=== PATIENT | female | born 1975 | race Caucasian/White ===

== ENCOUNTER 2018-01-04 19:29 | Emergency (ER) | payer BC, OTHER ==
[2018-01-04] MEDS ORDERED: Cephalexin 500 MG Cap PO ONE (20:05)
--- NOTE | 2018-01-04 20:36 | EDM.PDOC ---
ED HPI GENERAL MEDICAL PROBLEM - General Chief Complaint: Skin Complaint Stated Complaint: SPIDER BITE AND DIFFICULTY BREATHING HORTON SENT Time Seen by Provider: 01/04/18 19:50 Source of Information: Reports: Patient History Limitations: Reports: No Limitations - History of Present Illness INITIAL COMMENTS - FREE TEXT/NARRATIVE: The patient states that she was bitten by a spider just inferior to her left earlobe last night, while in bed. She states that she flicked it off, seeing that it was a spider, and then her cat ate it. She states that today she has felt lightheaded, and has had sharp intermittent central chest pain. She states that the area where she was bitten by the spider has become painful and swollen , and that there was purulent drainage earlier. No recent fever. The patient's PCP is in [place]. Left Neck Pain Score (Numeric/FACES): 5 - Related Data Allergies Allergy/AdvReac Type Severity Reaction Status Date / Time No Known Allergies Allergy Verified 01/04/18 19:35 Home Meds: Home Meds Aspirin 81 mg PO DAILY 01/04/18 [History] Cephalexin [Keflex] 1 cap PO Q6H #28 capsule 01/04/18 [Rx] Gabapentin [Neurontin] 300 mg PO BEDTIME 01/04/18 [History] Lisinopril 0 mg PO DAILY 01/04/18 [History] metFORMIN [Glucophage XR] 0 mg PO BID 01/04/18 [History] tiZANidine HCl [Tizanidine HCl] 2 mg PO BEDTIME 01/04/18 [History] Past Medical History Musculoskeletal History: Reports: Back Pain, Chronic Neurological History: Reports: Neuropathy, Peripheral (LLE, with footdrop) Endocrine/Metabolic History: Reports: Diabetes, Type II, Obesity/BMI 30+ - Past Surgical History HEENT Surgical History: Reports: Oral Surgery ([place] teeth extraction) GI Surgical History: Reports: Cholecystectomy Other GI Surgeries/Procedures: 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 Neurological Surgical History: Reports: Lumbar Spine (x 4, incl fusion) Dermatological Surgical History: Reports: Other (See Below) (Lipoma excisions x 3) Social & Family History - Family History Family Medical History: Noncontributory - Tobacco Use Smoking Status *Q: Former Smoker Years of Tobacco use: 25 Packs/Tins Daily: 1 Month/Year Tobacco Last Used: Quit May 2017 - Caffeine Use Caffeine Use: Reports: Energy Drinks - Alcohol Use Alcohol Use History: Yes Alcohol Use Frequency: Rarely - Recreational Drug Use Recreational Drug Use: Yes Drug Use in Last 12 Months: No Recreational Drug Type: Reports: Marijuana/Hashish (last 2008), Methamphetamine (last 2006) - Living Situation & Occupation Living situation: Reports: , Other (with a friend) Occupation: Employed ([employer]) ED ROS GENERAL - Review of Systems Review Of Systems: ROS reveals no pertinent complaints other than HPI. ED EXAM, SKIN/RASH Exam: See Below Exam Limited By: No Limitations General Appearance: Alert, WD/WN, No Apparent Distress Eye Exam: Bilateral Eye: Normal Inspection Ears: Normal External Exam, Hearing Grossly Normal Nose: Normal Inspection, No Blood Throat/Mouth: Normal Inspection, Normal Lips, Normal Voice, No Airway Compromise Head: Atraumatic, Normocephalic Neck: Full Range of Motion, Other (Approximately 1.5 cm area of erythema and swelling just inferior to the left ear lobe, with a 0.5 cm central scab. No purulent drainage.). No: Lymphadenopathy (L), Lymphadenopathy (R) Respiratory/Chest: No Respiratory Distress, Lungs Clear, Normal Breath Sounds, No Accessory Muscle Use Cardiovascular: Normal Peripheral Pulses, Regular Rate, Rhythm, No Gallop, No JVD, No Murmur, No Rub Peripheral Pulses: 4+: Radial (L), Radial (R) GI/Abdominal: Normal Bowel Sounds, Soft, Non-Tender, No Organomegaly, No Distention, No Abnormal Bruit, No Mass, Other (Obese) (Female) Exam: Deferred Rectal (Female) Exam: Deferred Back Exam: Normal Inspection, Full Range of Motion, NT Extremities: Normal Inspection, Normal Range of Motion, No Pedal Edema, Normal Capillary Refill Neurological: Alert, Oriented, Normal Cognition, No Motor/Sensory Deficits Psychiatric: Normal Affect Skin: Warm, Dry, Intact, Normal Color Course - Vital Signs Last Recorded V/S: Last Vital Signs Temp 37.1 C 01/04/18 21:03 Pulse 89 01/04/18 21:03 Resp 16 01/04/18 21:03 BP 132/88 01/04/18 21:03 Pulse Ox 100 01/04/18 21:03 Orthostatic Blood Pressure [ 140/89 Standing] Orthostatic Blood Pressure [ 144/93 Sitting] Orthostatic Blood Pressure [ 134/86 Supine] - Orders/Labs/Meds Orders: Active Orders 24 hr Category Date Time Status Orthostatic Vital Signs [RC] STAT Care 01/04/18 20:06 Active Meds: Medications Discontinued Medications Generic Name Dose Route Start Last Admin Trade Name Grady PRN Reason Stop Dose Admin Cephalexin 500 mg 01/04/18 20:05 01/04/18 20:08 Keflex PO 01/04/18 20:06 500 mg ONETIME ONE Administration - Re-Assessments/Exams Free Text/Narrative Re-Assessment/Exam: 01/04/18 20:39 The patient is not orthostatic. Her lightheadedness and chest pain is likely due to anxiety about the spider bite. There is local inflammation in the area of the spider bite, although I feel it is too early for an actual infection to have developed. Nevertheless, while I don't see any purulence at this time, the patient states that she had purulent discharge, and I will therefore treat her with Keflex, and refer her to Dr. Ndiaye for follow-up, should it not improve. Departure - Departure Time of Disposition: 20:40 Disposition: Home, Self-Care 01 Condition: Good Clinical Impression: Spider bite wound - Discharge Information Prescriptions: Cephalexin [Keflex] 1 cap PO Q6H #28 capsule Instructions: Spider Bite, [id number] Referrals: Mitch Ndiaye MD [Physician] - PCP,Not In Area [Primary Care Provider] - Forms: ED Department Discharge Additional Instructions: You were seen in the emergency room after being bitten under your left ear by a spider, as well as feeling lightheaded and chest pain. Workup in the ER included positional blood pressure checks, which were normal. You are not dehydrated. On examination, you appear to have local inflammation from the spider bite. It is unlikely to be infected, however, you have been started on the antibiotic Keflex. A prescription for Keflex has been sent to the [facility], [address], located across the street from [facility]. Take one tablet every 6 hours, as prescribed. Finish the entire prescription unless told otherwise by your doctor. If your symptoms fail to improve, please follow-up with the Surgeon Dr. Mitch Ndiaye. If any other problems, please do not hesitate to return to the ER. - My Orders Last 24 Hours: My Active Orders 01/04/18 20:06 Orthostatic Vital Signs [RC] STAT - Assessment/Plan Last 24 Hours: My Active Orders 01/04/18 20:06 Orthostatic Vital Signs [RC] STAT
== END 2018-01-04 21:03 | disposition home or self-care (01) ==
LOC: JD.ED 19:29
DX: S10.96XA Insect bite of unspecified part of neck, initial encounter (principal); E11.42 Type 2 diabetes mellitus with diabetic polyneuropathy; E66.9 Obesity, unspecified; Z87.891 Personal history of nicotine dependence; Z79.82 Long term (current) use of aspirin; Z79.899 Other long term (current) drug therapy; W57.XXXA Bitten or stung by nonvenomous insect and other nonvenomous arthropods, initial encounter
CPT/HCPCS: 99283; A9270

== ENCOUNTER 2018-09-27 08:45 | Emergency (ER) | payer BC ==
[2018-09-27] MEDS ORDERED: Ondansetron 4 MG/2 ML SDV IVPUSH ONE (09:55)
[2018-09-27] MEDS ORDERED: Sodium Chloride 0.9% 1,000 ML IV SCH (10:00)
--- NOTE | 2018-09-27 10:06 | EDM.PDOC ---
ED HPI GENERAL MEDICAL PROBLEM - General Chief Complaint: Respiratory Problem Stated Complaint: CHEST PAIN Time Seen by Provider: 09/27/18 09:27 Source of Information: Reports: Patient, RN Notes Reviewed History Limitations: Reports: No Limitations - History of Present Illness INITIAL COMMENTS - FREE TEXT/NARRATIVE: The patient states that she has had a dry cough, nausea, vomiting, and dry heaves, for the past 2 days. She states that she just feels lousy. She denies having any dyspnea or wheezing. She states that she had vomiting 2 days ago, but only dry heaves since. She is able to tolerate water. No associated diarrhea. No recent fever. No urinary symptoms. No abdominal pain. The patient relates that there are similarly ill people at work. The patient states that she has not taken any [id number]-vax-[id number] or home remedies to try to treat her symptoms. The patient also relates that she had some chest pain for about 15 minutes this morning, felt under her left breast, by the anterior left axillary line, that felt like a pulled muscle. It is gone now. The patient has type 2 diabetes. She states that she is instructed to check her blood sugar once or twice a day, but in reality, she checks it about once a week , if she is feeling lightheaded or otherwise ill. This morning it was about 240 , which is high for her. The patient's PCP is Dr. Lantigua, in [place]. The patient did not receive an influenza vaccine this season. - Related Data Allergies Allergy/AdvReac Type Severity Reaction Status Date / Time No Known Allergies Allergy Verified 09/27/18 08:56 Home Meds: Home Meds Aspirin 81 mg PO DAILY 01/04/18 [History] Gabapentin [Neurontin] 300 mg PO BEDTIME 01/04/18 [History] Lisinopril 0 mg PO DAILY 01/04/18 [History] metFORMIN [Glucophage XR] 0 mg PO BID 01/04/18 [History] tiZANidine HCl [Tizanidine HCl] 2 mg PO BEDTIME 01/04/18 [History] Calcium Carbonate [Calcium] 500 mg PO DAILY 09/27/18 [History] Fish Oil/Wilson-3 Fatty Acids [Fish Oil 1,000 MG] 1 each PO DAILY 09/27/18 [ History] Hydrocodone/Acetaminophen [Hydrocodon-Acetaminophn 10-325] 1 - 2 tab PO Q6H [History] Ondansetron [Zofran ODT] 1 tab PO Q8H PRN #10 tab.dis 09/27/18 [Rx] Past Medical History Cardiovascular History: Reports: Hypertension Genitourinary History: Reports: Renal Calculus Musculoskeletal History: Reports: Back Pain, Chronic Neurological History: Reports: Neuropathy, Peripheral (left footdrop) Endocrine/Metabolic History: Reports: Diabetes, Type II, Obesity/BMI 30+ - Past Surgical History HEENT Surgical History: Reports: Oral Surgery ([place] teeth extraction) GI Surgical History: Reports: Cholecystectomy (2009 or 2010) Other GI Surgeries/Procedures: 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 Neurological Surgical History: Reports: Lumbar Spine (Microdiscectomy x 3, fusion x 1) Dermatological Surgical History: Reports: Other (See Below) (Lipoma excision x 3 , noncancerous tumors excised soft left upper abdomen/lower chest) Social & Family History - Family History Family Medical History: Noncontributory - Tobacco Use Smoking Status *Q: Former Smoker Years of Tobacco use: 29 Packs/Tins Daily: 2 Month/Year Tobacco Last Used: Quit May 2017 - Caffeine Use Caffeine Use: Reports: Energy Drinks - Alcohol Use Alcohol Use History: Yes Alcohol Use Frequency: Rarely - Recreational Drug Use Recreational Drug Use: Yes Drug Use in Last 12 Months: No Recreational Drug Type: Reports: Marijuana/Hashish (last smoked 2006), Methamphetamine (last smoked 2006) - Living Situation & Occupation Living situation: Reports: , Alone 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 ED EXAM, GENERAL - Physical Exam Exam: See Below Exam Limited By: No Limitations General Appearance: Alert, WD/WN, No Apparent Distress Eye Exam: Bilateral Eye: EOMI, Normal Inspection Ears: Normal External Exam, Hearing Grossly Normal Nose: Normal Inspection Throat/Mouth: Normal Inspection, Normal Lips, Normal Voice, No Airway Compromise Head: Atraumatic, Normocephalic Neck: Normal Inspection, Full Range of Motion Respiratory/Chest: No Respiratory Distress, Lungs Clear, Normal Breath Sounds, No Accessory Muscle Use. No: Crackles, Rhonchi, Wheezing Cardiovascular: Normal Peripheral Pulses, Regular Rate, Rhythm, No Gallop, No JVD, No Murmur, No Rub Peripheral Pulses: 4+: Radial (L), Radial (R) GI/Abdominal: Normal Bowel Sounds, Soft, Non-Tender, No Organomegaly, No Distention, No Abnormal Bruit, No Mass, Other (Obese) (Female) Exam: Deferred Rectal (Female) Exam: Deferred Back Exam: Normal Inspection, Full Range of Motion, NT Extremities: Normal Inspection, Normal Range of Motion, Normal Capillary Refill Neurological: Alert, Oriented, Normal Cognition, No Motor/Sensory Deficits Psychiatric: Normal Affect Skin Exam: Warm, Dry, Intact, Normal Color, No Rash Course - Vital Signs Last Recorded V/S: Last Vital Signs Temp 36.6 C 09/27/18 08:49 Pulse 73 09/27/18 08:49 Resp 18 09/27/18 08:49 BP 153/93 H 09/27/18 08:49 Pulse Ox 100 09/27/18 08:49 - Orders/Labs/Meds Orders: Active Orders 24 hr Category Date Time Status Sodium Chloride 0.9% [Normal Saline] 1,000 ml Med 09/27/18 10:00 Active IV ASDIRECTED Medication Orders Sodium Chloride (Normal Saline) 1,000 mls @ 150 mls/hr IV ASDIRECTED SOLEDAD Last Admin: 09/27/18 10:09 Dose: 150 mls/hr Labs: Laboratory Tests 09/27/18 09/27/18 Range/Units 10:08 10:08 WBC 5.59 (3.98-10.04) K/mm3 RBC 4.35 (3.98-5.22) M/mm3 Hgb 10.4 L (11.2-15.7) gm/L Hct 34.2 (34.1-44.9) % MCV 78.6 L (79.4-94.8) fl MCH 23.9 L (25.6-32.2) pg MCHC 30.4 L (32.2-35.5) g/dl RDW Std Deviation 44.9 (36.4-46.3) fL Plt Count 371 H (182-369) K/mm3 MPV 10.9 (9.4-12.3) fl Neutrophils % (Manual) 49 (40-60) % Band Neutrophils % 0 (0-10) % Lymphocytes % (Manual) 39 (20-40) % Atypical Lymphs % 0 % Monocytes % (Manual) 5 (2-10) % Eosinophils % (Manual) 5 (0.7-5.8) % Basophils % (Manual) 2 H (0.1-1.2) Platelet Estimate Adequate Plt Morphology Comment Normal RBC Morph Comment Normal Sodium 141 (136-145) mEq/L Potassium 4.0 (3.5-5.1) mEq/L Chloride 106 (98-107) mEq/L Carbon Dioxide 25 (21-32) mEq/L Anion Gap 14.0 (5-15) BUN 7 (7-18) mg/dL Creatinine 0.5 L (0.55-1.02) mg/dL Est Cr Clr Drug Dosing 146.35 mL/min Estimated GFR (MDRD) > 60 (>60) mL/min BUN/Creatinine Ratio 14.0 (14-18) Glucose 79 (74-106) mg/dL Calcium 9.1 (8.5-10.1) mg/dL Total Bilirubin 0.2 (0.2-1.0) mg/dL AST 31 (15-37) U/L ALT 29 (14-59) U/L Alkaline Phosphatase 44 L (46-116) U/L Total Protein 7.6 (6.4-8.2) g/dl Albumin 3.8 (3.4-5.0) g/dl Globulin 3.8 gm/dL Albumin/Globulin Ratio 1.0 (1-2) Meds: Medications Generic Name Dose Route Start Last Admin Trade Name Freq PRN Reason Stop Dose Admin Sodium Chloride 1,000 mls @ 150 mls/hr 09/27/18 10:00 09/27/18 10:09 Normal Saline IV 150 mls/hr ASDIRECTED SOLEDAD Administration Discontinued Medications Generic Name Dose Route Start Last Admin Trade Name Freq PRN Reason Stop Dose Admin Ondansetron HCl 4 mg 09/27/18 09:55 09/27/18 10:09 Zofran IVPUSH 09/27/18 09:56 4 mg ONETIME ONE Administration - Re-Assessments/Exams Free Text/Narrative Re-Assessment/Exam: 09/27/18 10:11 The etiology of the patient's symptoms is not immediately clear. She is likely suffering from a viral URI as well as a gastrointestinal illness. I ordered an influenza swab, because if it is positive, the patient is likely still within the window of opportunity for treatment. I've also ordered a CBC and CMP. Because the patient's lungs are clear to auscultation, she has no dyspnea, does not have a fever, and her oxygen saturation is 100% on room air, I don't see the need for an emergency chest x-ray at this time. Additionally, the patient has no urinary symptoms, therefore a urinalysis is not indicated. 09/27/18 11:32 Test results discussed with the patient. Today's workup is entirely unremarkable. She does not have an elevated WBC count, and her CMP is normal. Her influenza swab returned negative. As above, I suspect that the patient is suffering from a viral URI along with a gastrointestinal illness, also likely viral. I explained to the patient that there are no medicines to get rid of the viruses themselves, but that we can treat her symptoms with medicines such as Zofran. I will send a prescription to [facility]. I advised her to stay adequately hydrated, and if she is hungry, to eat a bland diet. If she is still symptomatic by 10/01/2018, I advised her to follow-up with her PCP. Departure - Departure Time of Disposition: 11:35 Disposition: Home, Self-Care 01 Condition: Fair Clinical Impression: Viral URI with cough, Nausea & vomiting - Discharge Information *PRESCRIPTION DRUG MONITORING PROGRAM REVIEWED*: Not Applicable *COPY OF PRESCRIPTION DRUG MONITORING REPORT IN PATIENT JACINTO: Not Applicable Referrals: Brittany Lantigua MD [Primary Care Provider] - Forms: ED Department Discharge Additional Instructions: You were seen in the emergency room for a dry cough, nausea, and vomiting. Workup in the ER included a CBC, a CMP, and an influenza swab. Your entire workup was unremarkable. You do not have an elevated WBC count to suggest a bacterial infection, there are no electrolyte abnormalities, you are not dehydrated, and your influenza swab returned negative. Based on your history, physical examination, and ER tests, you are most likely suffering from a viral upper respiratory infection, along with a gastrointestinal viral illness. While there are no medicines to get rid of the viruses themselves, there are medicines that may help treat your symptoms. A prescription for anti-nausea medicine Zofran has been sent to the [facility], located at [address] [facility]. Dissolve one tablet of Zofran on your tongue up to every 8 hours, as needed for nausea/vomiting. Stay adequately hydrated. It does not really matter what kind of fluid you drink. If you are hungry, we recommend that you eat a bland diet, such as rice, mashed potatoes, applesauce, bananas, etc. If you are still symptomatic by 10/01/2018, we recommend that you follow- up with your PCP, Dr. Lantigua, in [place]. If any other problems, please do not hesitate to return to the ER. - My Orders Last 24 Hours: My Active Orders 09/27/18 10:00 Sodium Chloride 0.9% [Normal Saline] 1,000 ml IV ASDIRECTED - Assessment/Plan Last 24 Hours: My Active Orders 09/27/18 10:00 Sodium Chloride 0.9% [Normal Saline] 1,000 ml IV ASDIRECTED
== END 2018-09-27 11:50 | disposition home or self-care (01) ==
LOC: JD.ED 08:45
DX: J06.9 Acute upper respiratory infection, unspecified (principal); R11.2 Nausea with vomiting, unspecified; E11.40 Type 2 diabetes mellitus with diabetic neuropathy, unspecified; I10 Essential (primary) hypertension; Z79.82 Long term (current) use of aspirin; Z79.84 Long term (current) use of oral hypoglycemic drugs; Z79.899 Other long term (current) drug therapy
CPT/HCPCS: 36415; 80053; 85007; 85027; 87804; 96361; 96374; 99284; J2405; J7040; 99283

== ENCOUNTER 2019-02-19 21:25 | Emergency (ER) | payer BC ==
--- NOTE | 2019-02-19 21:58 | EDM.PDOC ---
ED HPI GENERAL MEDICAL PROBLEM - General Chief Complaint: Head Injury Stated Complaint: PICTURE FELL ON HEAD Time Seen by Provider: 02/19/19 21:40 Source of Information: Reports: Patient, RN Notes Reviewed History Limitations: Reports: No Limitations - History of Present Illness INITIAL COMMENTS - FREE TEXT/NARRATIVE: Patient is a 43-year-old female who presents to the ED for the evaluation of a head injury. The patient states that just prior to arrival to the ER, she had a picture frame fall on to the top of her head. 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 She notes that she does have a bruise to the top of her head, and a small abrasion to the bridge of nose, however she denies any loss of consciousness, blacking out, blurred vision/double vision, pain in her neck, nausea or vomiting. She only complains of some lightheadedness and a mild headache. The patient has never had any sort of head injury. Headache Pain Score (Numeric/FACES): 6 - Related Data Allergies Allergy/AdvReac Type Severity Reaction Status Date / Time No Known Allergies Allergy Verified 02/19/19 21:31 Home Meds: Home Meds Aspirin 81 mg PO DAILY 01/04/18 [History] Gabapentin [Neurontin] 300 mg PO BEDTIME 01/04/18 [History] Lisinopril 0 mg PO DAILY 01/04/18 [History] metFORMIN [Glucophage XR] 0 mg PO BID 01/04/18 [History] tiZANidine HCl [Tizanidine HCl] 2 mg PO BEDTIME 01/04/18 [History] Calcium Carbonate [Calcium] 500 mg PO DAILY 09/27/18 [History] Fish Oil/Vassar-3 Fatty Acids [Fish Oil 1,000 MG] 1 each PO DAILY 09/27/18 [ History] Hydrocodone/Acetaminophen [Hydrocodon-Acetaminophn 10-325] 1 - 2 tab PO Q6H [History] Ondansetron [Zofran ODT] 1 tab PO Q8H PRN #10 tab.dis 09/27/18 [Rx] Past Medical History Cardiovascular History: Reports: Hypertension Other Cardiovascular History: palpatations Genitourinary History: Reports: Renal Calculus Musculoskeletal History: Reports: Back Pain, Chronic Neurological History: Reports: Neuropathy, Peripheral Endocrine/Metabolic History: Reports: Diabetes, Type II, Obesity/BMI 30+ - Past Surgical History HEENT Surgical History: Reports: Oral Surgery GI Surgical History: Reports: Cholecystectomy Other GI Surgeries/Procedures: 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 Neurological Surgical History: Reports: Lumbar Spine Social & Family History - Family History Family Medical History: Noncontributory - Tobacco Use Smoking Status *Q: Former Smoker Used Tobacco, but Quit: Yes Month/Year Tobacco Last Used: 2017 - Caffeine Use Caffeine Use: Reports: Energy Drinks - Recreational Drug Use Recreational Drug Use: No - Living Situation & Occupation Living situation: Reports: , Alone 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 Denies: Confusion, Dizziness, Numbness, Syncope, Tingling Psychiatric: Reports: No Symptoms Hematologic/Lymphatic: Reports: No Symptoms ED EXAM, HEAD INJURY - Physical Exam Exam: See Below Exam Limited By: No Limitations General Appearance: Alert, WD/WN, No Apparent Distress Head: Atraumatic, Normocephalic, Scalp Hematoma (hematoma to top of mid frontal head, near scalp line.), Scalp Tenderness (mid frontal area where hematoma is noted.). No: Scalp Lacerations Nexus Criteria: No: Posterior, Midline Cervical Tenderness, Evidence of Intoxication, Altered Level of Consciousness, Focal Neurological Deficit, Painful Distraction Injuries Eyes: Bilateral Eye: EOMI, Normal Inspection, PERRL Ears: Normal External Exam, Normal Canal, Hearing Grossly Normal, Normal TMs Nose: Normal Inspection (small abrasion noted to bridge of nose, no active bleeding.), Normal Mucousa, No Blood Throat/Mouth: Normal Inspection, Normal Lips, Normal Teeth, Normal Gums, Normal Oropharynx, Normal Voice, No Airway Compromise Neck: Non-Tender, Full Range of Motion, Normal Alignment, Normal Inspection Respiratory: No Respiratory Distress, Lungs Clear, Normal Breath Sounds, No Accessory Muscle Use, Chest Non-Tender Cardiovascular: Normal Peripheral Pulses, Regular Rate, Rhythm, No Murmur 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: 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 inspector II-XII nml As Tested, No Motor/Sensory Deficits, Alert, Normal Mood/Affect, Oriented x 3 Skin: Normal Color, Warm/Dry - Usman Coma Score Best Eye Response (Usman): (4) Open Spontaneously Best Verbal Response (Ledbetter): (5) Oriented Best Motor Response (Usman): (6) Obeys Commands Usman Total: 15 Course - Vital Signs Last Recorded V/S: Last Vital Signs Temp 97.4 F 02/19/19 21:32 Pulse 84 02/19/19 21:32 Resp 16 02/19/19 21:32 BP 125/85 02/19/19 21:32 Pulse Ox 98 02/19/19 21:32 - Re-Assessments/Exams Free Text/Narrative Re-Assessment/Exam: 02/19/19 21:58 Patient presents to the ED for evaluation of a head injury. The patient does not exhibit any signs or symptoms of a concussion at this time. However she will be educated on signs and symptoms that would be considered worrisome. Departure - Departure Time of Disposition: 21:59 Disposition: Home, Self-Care 01 Condition: Fair Clinical Impression: Headache Qualifiers: Headache type: post-traumatic Headache chronicity pattern: acute headache Intractability: not intractable Qualified Code(s): G44.319 - Acute post- traumatic headache, not intractable Traumatic hematoma of scalp Qualifiers: Encounter type: initial encounter Qualified Code(s): S00.03XA - Contusion of scalp, initial encounter - Discharge Information *PRESCRIPTION DRUG MONITORING PROGRAM REVIEWED*: No *COPY OF PRESCRIPTION DRUG MONITORING REPORT IN PATIENT JACINTO: No Instructions: Post-Concussion Syndrome, [id number], Head Injury, Adult, Easy- to-Read, Hematoma, [id number] Referrals: PCP,Not In Area [Primary Care Provider] - Additional Instructions: You have been evaluated in the ED today for your head injury. You do not show any signs and symptoms of a concussion at this time, however you have been provided with a educational handout that discusses postconcussion syndrome. This handout is for your general information. It is not likely that you will develop any of these symptoms. You may take 500 mg Tylenol or 600 mg ibuprofen every 6 hours as needed for further pain relief. Please return to the ED if her symptoms should change or worsen.
== END 2019-02-19 22:09 | disposition home or self-care (01) ==
LOC: JD.ED 21:25
DX: S00.03XA Contusion of scalp, initial encounter (principal); G44.319 Acute post-traumatic headache, not intractable; S00.31XA Abrasion of nose, initial encounter; I10 Essential (primary) hypertension; E11.42 Type 2 diabetes mellitus with diabetic polyneuropathy; Z87.891 Personal history of nicotine dependence; Z79.82 Long term (current) use of aspirin; Z79.899 Other long term (current) drug therapy; Z79.84 Long term (current) use of oral hypoglycemic drugs; W20.8XXA Other cause of strike by thrown, projected or falling object, initial encounter
CPT/HCPCS: 99282; 99283

== ENCOUNTER 2019-05-18 01:24 | Emergency (ER) | payer BC ==
[2019-05-18] MEDS ORDERED: Sodium Chloride 0.9% 1,000 ML IV SCH (01:45)
--- NOTE | 2019-05-18 01:57 | EDM.PDOC ---
ED HPI GENERAL MEDICAL PROBLEM - General Chief Complaint: Drug or Alcohol Abuse Stated Complaint: [facility] Time Seen by Provider: 05/18/19 01:31 Source of Information: Reports: Patient, EMS History Limitations: Reports: Intoxication - History of Present Illness INITIAL COMMENTS - FREE TEXT/NARRATIVE: This is a 43-year-old female. The ambulance was called to her residence because she was unresponsive and her blood sugar was high. She is brought into the ER for evaluation. She is somewhat angry at being brought to the ER and with the ambulance crew for keeping her on the stretcher. She says she drank beer and whiskey tonight and she doesn't want to be here but her friends will come to pick her up. I explained to her that if she would just let his check her blood work and make sure she is okay we can let her go home. Her blood sugar was noted to be 336 at the scene. She isn't noted diabetic and she is on pills for it but does not take insulin. She denies any acute problems other then her arms are hurting because she was restrained in the ambulance because she was being combative. Bilateral Arm Pain Score (Numeric/FACES): 0 - Related Data Allergies Allergy/AdvReac Type Severity Reaction Status Date / Time No Known Allergies Allergy Verified 05/18/19 01:34 Home Meds: Home Meds Aspirin 81 mg PO DAILY 01/04/18 [History] Gabapentin [Neurontin] 300 mg PO BEDTIME 01/04/18 [History] Lisinopril 20 mg PO DAILY 01/04/18 [History] metFORMIN [Glucophage XR] 1,000 mg PO BID 01/04/18 [History] tiZANidine HCl [Tizanidine HCl] 2 mg PO BEDTIME 01/04/18 [History] Calcium Carbonate [Calcium] 500 mg PO DAILY 09/27/18 [History] Fish Oil/[place]-3 Fatty Acids [Fish Oil 1,000 MG] 1 each PO DAILY 09/27/18 [ History] Hydrocodone/Acetaminophen [Hydrocodon-Acetaminophn 10-325] 1 - 2 tab PO Q6H [History] Empagliflozin [Jardiance] 25 mg PO DAILY 03/18/19 [History] Ferrous Sulfate [Ferosul] 220 mg PO DAILY #150 ml 03/18/19 [Rx] Magnesium 1 tab PO BID 03/18/19 [History] Phentermine HCl 30 mg PO DAILY 03/18/19 [History] atorvaSTATin [Lipitor] 20 mg PO DAILY 03/18/19 [History] Past Medical History Cardiovascular History: Reports: Hypertension Other Cardiovascular History: palpatations Genitourinary History: Reports: Renal Calculus Musculoskeletal History: Reports: Back Pain, Chronic Neurological History: Reports: Neuropathy, Peripheral Endocrine/Metabolic History: Reports: Diabetes, Type II, Obesity/BMI 30+ - Past Surgical History HEENT Surgical History: Reports: Oral Surgery GI Surgical History: Reports: Cholecystectomy Other GI Surgeries/Procedures: 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 Neurological Surgical History: Reports: Lumbar Spine Other Neurological Surgeries/Procedures: left foot drop, L4-5 laminectomies (2) and fusion (2) Social & Family History - Family History Family Medical History: Noncontributory - Caffeine Use Caffeine Use: Reports: Energy Drinks - Living Situation & Occupation Living situation: Reports: , Alone 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) ED ROS GENERAL - Review of Systems Review Of Systems: See Below Constitutional: Reports: No Symptoms HEENT: Reports: No Symptoms Respiratory: Reports: No Symptoms Cardiovascular: Reports: No Symptoms Endocrine: Reports: No Symptoms GI/Abdominal: Reports: No Symptoms : Reports: No Symptoms Musculoskeletal: Reports: Other (Left arm pain status post surgery transposition of the ulnar nerve) Skin: Reports: No Symptoms Neurological: Reports: No Symptoms Psychiatric: Reports: No Symptoms Hematologic/Lymphatic: Reports: No Symptoms - Physical Exam Exam: See Below Exam Limited By: Intoxication General Appearance: Alert, WD/WN, Other (Patient is upset but no acute distress) Eye Exam: Bilateral Eye: Normal Inspection Ears: Normal External Exam Nose: Normal Inspection Throat/Mouth: Normal Inspection, Normal Lips, Normal Voice, No Airway Compromise Head Exam: Normocephalic Neck: Normal Inspection Respiratory/Chest: No Respiratory Distress, Lungs Clear, Normal Breath Sounds Cardiovascular: Regular Rate, Rhythm, No Murmur GI/Abdominal: Soft, Non-Tender Neuro Exam (Abbreviated): Alert, Oriented, Normal Gait, No Motor/Sensory Deficits, Other (Patient got up and walked to the bathroom with no difficulty and no balance problems) Back Exam: Full Range of Motion Extremities: Normal Range of Motion, Other (Status post surgery on the left forearm noted the incision is intact) Psychiatric: Tearful Skin Exam: Warm, Dry Course - Vital Signs Last Recorded V/S: Last Vital Signs Temp 97.0 F 05/18/19 01:27 Pulse 116 H 05/18/19 01:27 Resp 16 05/18/19 01:27 BP 179/116 H 05/18/19 01:27 Pulse Ox 97 05/18/19 01:27 - Orders/Labs/Meds Orders: Active Orders 24 hr Category Date Time Status Blood Alcohol [ETHANOL BLOOD MEDICAL] [CHEM] Stat Lab 05/18/19 01:50 Received COMPREHENSIVE METABOLIC PN,CMP [CHEM] Stat Lab 05/18/19 01:50 Received LIPASE [CHEM] Stat Lab 05/18/19 01:50 Received Sodium Chloride 0.9% [Normal Saline] 1,000 ml Med 05/18/19 01:45 Active IV ASDIRECTED Medication Orders Sodium Chloride (Normal Saline) 1,000 mls @ 1,000 mls/hr IV ASDIRECTED SOLEDAD Last Admin: 05/18/19 01:38 Dose: 1,000 mls/hr Labs: Laboratory Tests 05/18/19 Range/Units 01:50 WBC 6.75 (3.98-10.04) K/mm3 RBC 4.91 (3.98-5.22) M/mm3 Hgb 12.3 D (11.2-15.7) gm/L Hct 38.4 (34.1-44.9) % MCV 78.2 L D (79.4-94.8) fl MCH 25.1 L (25.6-32.2) pg MCHC 32.0 L (32.2-35.5) g/dl RDW Std Deviation 55.2 H (36.4-46.3) fL Plt Count 348 (182-369) K/mm3 MPV 10.3 (9.4-12.3) fl Neut % (Auto) 62.8 (34.0-71.1) % Lymph % (Auto) 28.1 (19.3-51.7) % [place] % (Auto) 6.7 (4.7-12.5) % Eos % (Auto) 1.6 (0.7-5.8) Baso % (Auto) 0.7 (0.1-1.2) % Neut # (Auto) 4.23 (1.56-6.13) K/mm3 Lymph # (Auto) 1.90 (1.18-3.74) K/mm3 [place] # (Auto) 0.45 H (0.24-0.36) K/mm3 Eos # (Auto) 0.11 (0.04-0.36) K/mm3 Baso # (Auto) 0.05 (0.01-0.08) K/mm3 Meds: Medications Generic Name Dose Route Start Last Admin Trade Name Grady PRN Reason Stop Dose Admin Sodium Chloride 1,000 mls @ 1,000 mls/hr 05/18/19 01:45 05/18/19 01:38 Normal Saline IV 1,000 mls/hr ASDIRECTED SOLEDAD Administration - Re-Assessments/Exams Free Text/Narrative Re-Assessment/Exam: 05/18/19 02:10 One of the patient's friends came to the ER to be with her. The patient has torn out her IV and she now wants to sign out AGAINST MEDICAL ADVICE. I explained to her that with her elevated blood sugar it could get worse he could lead to a coma and even and that the alcohol will lead to poor judgment which can lead to injury and possibly . That she needs to stay and be evaluated appropriately. The patient states she is going to leave so she'll sign out AGAINST MEDICAL ADVICE. Departure - Departure Time of Disposition: 02:11 Disposition: Against Medical Advice 07 Condition: Fair Clinical Impression: Elevated blood sugar, Intoxication, Alcohol abuse, Non-insulin dependent type 2 diabetes mellitus - Discharge Information *PRESCRIPTION DRUG MONITORING PROGRAM REVIEWED*: Not Applicable *COPY OF PRESCRIPTION DRUG MONITORING REPORT IN PATIENT JACINTO: Not Applicable Instructions: Alcohol Use Disorder Forms: Refusal of Care AMA Additional Instructions: No more alcohol tonight, if there are worsening symptoms return to the ER - My Orders Last 24 Hours: My Active Orders 05/18/19 01:45 Sodium Chloride 0.9% [Normal Saline] 1,000 ml IV ASDIRECTED 05/18/19 01:50 Blood Alcohol [ETHANOL BLOOD MEDICAL] [CHEM] Stat COMPREHENSIVE METABOLIC PN,CMP [CHEM] Stat LIPASE [CHEM] Stat - Assessment/Plan Last 24 Hours: My Active Orders 05/18/19 01:45 Sodium Chloride 0.9% [Normal Saline] 1,000 ml IV ASDIRECTED 05/18/19 01:50 Blood Alcohol [ETHANOL BLOOD MEDICAL] [CHEM] Stat COMPREHENSIVE METABOLIC PN,CMP [CHEM] Stat LIPASE [CHEM] Stat
== END 2019-05-18 02:10 | disposition left against medical advice (07) ==
LOC: JD.ED 01:24
DX: E11.65 Type 2 diabetes mellitus with hyperglycemia (principal); F10.129 Alcohol abuse with intoxication, unspecified; Y90.1 Blood alcohol level of 20-39 mg/100 ml; I10 Essential (primary) hypertension; E11.42 Type 2 diabetes mellitus with diabetic polyneuropathy; Z79.82 Long term (current) use of aspirin; Z79.899 Other long term (current) drug therapy; Z79.84 Long term (current) use of oral hypoglycemic drugs
CPT/HCPCS: 36415; 80053; 80320; 83690; 85025; 99285; J7040; G0480

== ENCOUNTER 2019-11-06 13:35 | Emergency (ER) | payer BC ==
[2019-11-06] MEDS ORDERED: Sodium Chloride 0.9% 1,000 ML IV STA (13:57)
[2019-11-06] MEDS ORDERED: Ondansetron 4 MG/2 ML SDV IVPUSH ONE (13:57)
[2019-11-06] MEDS ORDERED: HYDROmorphone 1 MG/ML Syringe IVPUSH ONE (13:58)
[2019-11-06] MEDS: Sodium Chloride 0.9% 10 ML Syringe FLUSH PRN ×2 (14:25→16:47)
--- NOTE | 2019-11-06 14:56 | EDM.PDOC ---
ED HPI GENERAL MEDICAL PROBLEM - General Chief Complaint: Abdominal Pain Stated Complaint: ABDOMINAL PAIN/VOMITING Time Seen by Provider: 11/06/19 13:50 Source of Information: Reports: Patient History Limitations: Reports: No Limitations - History of Present Illness INITIAL COMMENTS - FREE TEXT/NARRATIVE: The patient presents with upper abdominal pain, nausea and vomiting. This started last night. She had some loose stools also. She has no fever, chills, cough, congestion, or runny nose. She has no chest pain or shortness of breath. She had her gallbladder removed a few years ago. She still has her appendix. She did not eat any bad food that she knows of. There have been a few people she has been around that have been sick. She had no recent travel. She has no dysuria or hematuria. Onset: Gradual Duration: Day(s): (Last night) Location: Reports: Abdomen Quality: Reports: Sharp Severity: Moderate Improves with: Reports: None Worsens with: Reports: None Associated Symptoms: Reports: Nausea/Vomiting. Denies: Chest Pain, Cough, Fever /Chills, Headaches, Shortness of Breath Epigastric Pain Score (Numeric/FACES): 5 - Related Data Allergies Allergy/AdvReac Type Severity Reaction Status Date / Time No Known Allergies Allergy Verified 11/06/19 13:51 Home Meds: Home Meds Aspirin 81 mg PO DAILY 01/04/18 [History] Gabapentin [Neurontin] 300 mg PO BEDTIME 01/04/18 [History] Lisinopril 20 mg PO DAILY 01/04/18 [History] metFORMIN [Glucophage XR] 1,000 mg PO BID 01/04/18 [History] tiZANidine HCl [Tizanidine HCl] 2 mg PO BEDTIME 01/04/18 [History] Calcium Carbonate [Calcium] 500 mg PO DAILY 09/27/18 [History] Fish Oil/[place]-3 Fatty Acids [Fish Oil 1,000 MG] 1 each PO DAILY 09/27/18 [ History] Hydrocodone/Acetaminophen [Hydrocodon-Acetaminophn 10-325] 1 - 2 tab PO Q6H [History] Ferrous Sulfate [Ferosul] 220 mg PO DAILY #150 ml 03/18/19 [Rx] Magnesium 1 tab PO BID 03/18/19 [History] atorvaSTATin [Lipitor] 20 mg PO DAILY 03/18/19 [History] Cyclobenzaprine [Flexeril] 5 mg PO BEDTIME 11/06/19 [History] Dulaglutide [Trulicity] 0.75 mg SQ FR 11/06/19 [History] Hydrocodone/Acetaminophen [Hydrocodon-Acetaminophen 5-325] 1 - 2 each PO Q6HR PRN #10 tablet 11/06/19 [Rx] Ondansetron [Zofran ODT] 4 mg PO Q6H PRN #20 tab.dis 11/06/19 [Rx] Past Medical History Cardiovascular History: Reports: High Cholesterol, Hypertension Other Cardiovascular History: palpatations Genitourinary History: Reports: Renal Calculus Musculoskeletal History: Reports: Back Pain, Chronic Neurological History: Reports: Neuropathy, Peripheral Endocrine/Metabolic History: Reports: Diabetes, Type II, Obesity/BMI 30+ - Past Surgical History HEENT Surgical History: Reports: Oral Surgery GI Surgical History: Reports: Cholecystectomy Other GI Surgeries/Procedures: 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 Neurological Surgical History: Reports: Lumbar Spine Other Neurological Surgeries/Procedures: left foot drop, L4-5 laminectomies (2) and fusion (2) Social & Family History - Family History Family Medical History: Noncontributory - Tobacco Use Smoking Status *Q: Former Smoker Used Tobacco, but Quit: Yes Month/Year Tobacco Last Used: 05/22 - Caffeine Use Caffeine Use: Reports: None - Recreational Drug Use Recreational Drug Use: No - Living Situation & Occupation Living situation: Reports: , Alone 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) ED ROS GENERAL - Review of Systems Review Of Systems: See Below Constitutional: Reports: No Symptoms HEENT: Reports: No Symptoms Respiratory: Reports: No Symptoms Cardiovascular: Reports: No Symptoms Endocrine: Reports: No Symptoms GI/Abdominal: Reports: Abdominal Pain, Nausea, Vomiting : Reports: No Symptoms Musculoskeletal: Reports: No Symptoms ED EXAM, GI/ABD - Physical Exam Exam: See Below Exam Limited By: No Limitations General Appearance: Alert, No Apparent Distress Ears: Normal External Exam Nose: Normal Inspection Head: Atraumatic, Normocephalic Neck: Normal Inspection Respiratory/Chest: No Respiratory Distress, Lungs Clear, Normal Breath Sounds Cardiovascular: Regular Rate, Rhythm, No Edema, No Murmur GI/Abdominal Exam: Soft, No Organomegaly, No Mass, Tender (Mid upper abdominal pain) Back Exam: Normal Inspection Extremities: Normal Inspection Course - Vital Signs Last Recorded V/S: Last Vital Signs Temp 98.6 F 11/06/19 13:49 Pulse 100 11/06/19 13:49 Resp 16 11/06/19 13:49 BP 135/88 11/06/19 13:49 Pulse Ox 99 11/06/19 13:49 - Orders/Labs/Meds Orders: Active Orders 24 hr Category Date Time Status Peripheral IV Care [RC] . DIRECTED Care 11/06/19 13:58 Active Sodium Chloride 0.9% [Saline Flush] Med 11/06/19 13:57 Active 10 ml FLUSH ASDIRECTED PRN Sodium Chloride 0.9% [Saline Flush] Med 11/06/19 16:29 Active 10 ml FLUSH ONETIME PRN ED Antiemetic Medication Reflex [OM.PC] Stat Oth 11/06/19 13:58 Ordered Peripheral IV Insertion Adult [OM.PC] Stat Oth 11/06/19 13:57 Ordered Medication Orders Sodium Chloride (Saline Flush) 10 ml FLUSH ASDIRECTED PRN PRN Reason: Keep Vein Open Last Admin: 11/06/19 16:47 Dose: 10 ml Admin: 11/06/19 14:25 Dose: 10 ml Sodium Chloride (Saline Flush) 10 ml FLUSH ONETIME PRN PRN Reason: Keep Vein Open Last Admin: 11/06/19 16:36 Dose: 10 ml Labs: Laboratory Tests 11/06/19 11/06/19 11/06/19 Range/Units 14:15 14:15 14:15 WBC 12.11 H (3.98-10.04) K/mm3 RBC 4.72 (3.98-5.22) M/mm3 Hgb 13.5 (11.2-15.7) gm/dl Hct 40.7 (34.1-44.9) % MCV 86.2 D (79.4-94.8) fl MCH 28.6 (25.6-32.2) pg MCHC 33.2 (32.2-35.5) g/dl RDW Std Deviation 41.9 (36.4-46.3) fL Plt Count 317 (182-369) K/mm3 MPV 11.0 (9.4-12.3) fl Neut % (Auto) 88.1 H (34.0-71.1) % Lymph % (Auto) 6.2 L (19.3-51.7) % [place] % (Auto) 4.6 L (4.7-12.5) % Eos % (Auto) 0.7 (0.7-5.8) Baso % (Auto) 0.2 (0.1-1.2) % Neut # (Auto) 10.66 H (1.56-6.13) K/mm3 Lymph # (Auto) 0.75 L (1.18-3.74) K/mm3 [place] # (Auto) 0.56 H (0.24-0.36) K/mm3 Eos # (Auto) 0.08 (0.04-0.36) K/mm3 Baso # (Auto) 0.03 (0.01-0.08) K/mm3 Manual Slide Review Abnormal smear Sodium 141 (136-145) mEq/L Potassium 3.7 (3.5-5.1) mEq/L Chloride 104 (98-107) mEq/L Carbon Dioxide 22 (21-32) mEq/L Anion Gap 18.7 H (5-15) BUN 11 (7-18) mg/dL Creatinine 0.7 (0.55-1.02) mg/dL Est Cr Clr Drug Dosing 103.46 mL/min Estimated GFR (MDRD) > 60 (>60) mL/min BUN/Creatinine Ratio 15.7 (14-18) Glucose 151 H (74-106) mg/dL Calcium 9.1 (8.5-10.1) mg/dL Total Bilirubin 0.6 (0.2-1.0) mg/dL AST 17 (15-37) U/L ALT 29 (14-59) U/L Alkaline Phosphatase 43 L (46-116) U/L Total Protein 7.6 (6.4-8.2) g/dl Albumin 4.0 (3.4-5.0) g/dl Globulin 3.6 gm/dL Albumin/Globulin Ratio 1.1 (1-2) Lipase 129 (73-393) U/L HCG, Qual Negative (NEGATIVE) Urine Color (Yellow) Urine Appearance (Clear) Urine pH (5.0-8.0) Ur Specific [place] (1.005-1.030) Urine Protein (Negative) Urine Glucose (UA) (Negative) Urine Ketones (Negative) Urine Occult Blood (Negative) Urine Nitrite (Negative) Urine Bilirubin (Negative) Urine Urobilinogen (0.2-1.0) Ur Leukocyte Esterase (Negative) U Hyaline Cast (Auto) (0-5) /lpf Urine RBC (0-5) /hpf Urine WBC (0-5) /hpf Ur Squamous Epith Cells (0-5) /hpf Urine Bacteria (FEW) /hpf Urine Mucus (FEW) /hpf 11/06/19 Range/Units 16:50 WBC (3.98-10.04) K/mm3 RBC (3.98-5.22) M/mm3 Hgb (11.2-15.7) gm/dl Hct (34.1-44.9) % MCV (79.4-94.8) fl MCH (25.6-32.2) pg MCHC (32.2-35.5) g/dl RDW Std Deviation (36.4-46.3) fL Plt Count (182-369) K/mm3 MPV (9.4-12.3) fl Neut % (Auto) (34.0-71.1) % Lymph % (Auto) (19.3-51.7) % [place] % (Auto) (4.7-12.5) % Eos % (Auto) (0.7-5.8) Baso % (Auto) (0.1-1.2) % Neut # (Auto) (1.56-6.13) K/mm3 Lymph # (Auto) (1.18-3.74) K/mm3 [place] # (Auto) (0.24-0.36) K/mm3 Eos # (Auto) (0.04-0.36) K/mm3 Baso # (Auto) (0.01-0.08) K/mm3 Manual Slide Review Sodium (136-145) mEq/L Potassium (3.5-5.1) mEq/L Chloride (98-107) mEq/L Carbon Dioxide (21-32) mEq/L Anion Gap (5-15) BUN (7-18) mg/dL Creatinine (0.55-1.02) mg/dL Est Cr Clr Drug Dosing mL/min Estimated GFR (MDRD) (>60) mL/min BUN/Creatinine Ratio (14-18) Glucose (74-106) mg/dL Calcium (8.5-10.1) mg/dL Total Bilirubin (0.2-1.0) mg/dL AST (15-37) U/L ALT (14-59) U/L Alkaline Phosphatase (46-116) U/L Total Protein (6.4-8.2) g/dl Albumin (3.4-5.0) g/dl Globulin gm/dL Albumin/Globulin Ratio (1-2) Lipase (73-393) U/L HCG, Qual (NEGATIVE) Urine Color Yellow (Yellow) Urine Appearance Clear (Clear) Urine pH 5.5 (5.0-8.0) Ur Specific [place] 1.025 (1.005-1.030) Urine Protein Negative (Negative) Urine Glucose (UA) Negative (Negative) Urine Ketones 1+ H (Negative) Urine Occult Blood Negative (Negative) Urine Nitrite Negative (Negative) Urine Bilirubin Negative (Negative) Urine Urobilinogen 0.2 (0.2-1.0) Ur Leukocyte Esterase Negative (Negative) U Hyaline Cast (Auto) 0-5 (0-5) /lpf Urine RBC 0-5 (0-5) /hpf Urine WBC 0-5 (0-5) /hpf Ur Squamous Epith Cells 0-5 (0-5) /hpf Urine Bacteria Few (FEW) /hpf Urine Mucus Moderate H (FEW) /hpf Meds: Medications Generic Name Dose Route Start Last Admin Trade Name Freq PRN Reason Stop Dose Admin Sodium Chloride 10 ml 11/06/19 13:57 11/06/19 16:47 Saline Flush FLUSH 10 ml ASDIRECTED PRN Administration Keep Vein Open Sodium Chloride 10 ml 11/06/19 16:29 11/06/19 16:36 Saline Flush FLUSH 10 ml ONETIME PRN Administration Keep Vein Open Discontinued Medications Generic Name Dose Route Start Last Admin Trade Name Freq PRN Reason Stop Dose Admin Diatrizoate Meglum/Diatrizoate Sod 120 ml 11/06/19 16:29 11/06/19 16:36 Gastrografin 37% PO 11/06/19 16:30 90 ml ONETIME ONE Administration Hydromorphone HCl 1 mg 11/06/19 13:58 11/06/19 14:32 Dilaudid IVPUSH 11/06/19 13:59 1 mg ONETIME ONE Administration Hydromorphone HCl 0.5 mg 11/06/19 15:31 11/06/19 15:52 Dilaudid IVPUSH 11/06/19 15:32 0.5 mg ONETIME ONE Administration Sodium Chloride 1,000 mls @ 1,000 mls/hr 11/06/19 13:57 11/06/19 14:35 Normal Saline IV 11/06/19 14:56 1,000 mls/hr .BOLUS STA Administration Iopamidol 100 ml 11/06/19 16:29 11/06/19 16:36 Isovue-300 (61%) IVPUSH 11/06/19 16:30 100 ml ONETIME ONE Administration Metoclopramide HCl 10 mg 11/06/19 16:30 11/06/19 16:45 Reglan IVPUSH 11/06/19 16:31 10 mg ONETIME ONE Administration Ondansetron HCl 4 mg 11/06/19 13:57 11/06/19 14:30 Zofran IVPUSH 11/06/19 13:58 4 mg ONETIME ONE Administration - Re-Assessments/Exams Free Text/Narrative Re-Assessment/Exam: 11/06/19 14:57 I ordered an IV NS 1L bolus, zofran 4mg IV, dilaudid 1mg IV, labs and UA. 11/06/19 17:45 Her WBC was elevated at 12.11. Her anion gap was elevated at 18.7. Her Hcg is negative. He lipase is normal. Her UA shows no UTI. I ordered a CT of her abdomen and pelvis and it shows findings of enteritis. I will discharge her home with something for nausea and vomiting for pain. Departure - Departure Time of Disposition: 17:50 Disposition: Home, Self-Care 01 Condition: Good Clinical Impression: Gastroenteritis - Discharge Information *PRESCRIPTION DRUG MONITORING PROGRAM REVIEWED*: No *COPY OF PRESCRIPTION DRUG MONITORING REPORT IN PATIENT JACINTO: No Prescriptions: Hydrocodone/Acetaminophen [Hydrocodon-Acetaminophen 5-325] 1 - 2 each PO Q6HR PRN #10 tablet PRN Reason: Pain Ondansetron [Zofran ODT] 4 mg PO Q6H PRN #20 tab.dis PRN Reason: Nausea\vomiting Referrals: Brittany Lantigua MD [Primary Care Provider] - 1 Week Forms: ED Department Discharge Additional Instructions: Drink plenty of fluids. Take the zofran every 6 hours as needed for nausea and vomiting. Take tylenol or motrin for pain. If that does not help, try the hydrocodone. Please return if you are worse. Sepsis Event Note - Evaluation Sepsis Screening Result: No Definite Risk - Focused Exam Vital Signs: Vital Signs Temp Pulse Resp BP Pulse Ox 11/06/19 13:49 98.6 F 100 16 135/88 99 Date Exam was Performed: 11/06/19 Time Exam was Performed: 17:45 - My Orders Last 24 Hours: My Active Orders 11/06/19 13:57 Sodium Chloride 0.9% [Saline Flush] 10 ml FLUSH ASDIRECTED PRN Peripheral IV Insertion Adult [OM.PC] Stat 11/06/19 13:58 Peripheral IV Care [RC] . DIRECTED ED Antiemetic Medication Reflex [OM.PC] Stat 11/06/19 16:29 Sodium Chloride 0.9% [Saline Flush] 10 ml FLUSH ONETIME PRN - Assessment/Plan Last 24 Hours: My Active Orders 11/06/19 13:57 Sodium Chloride 0.9% [Saline Flush] 10 ml FLUSH ASDIRECTED PRN Peripheral IV Insertion Adult [OM.PC] Stat 11/06/19 13:58 Peripheral IV Care [RC] . DIRECTED ED Antiemetic Medication Reflex [OM.PC] Stat 11/06/19 16:29 Sodium Chloride 0.9% [Saline Flush] 10 ml FLUSH ONETIME PRN
[2019-11-06] MEDS ORDERED: HYDROmorphone 0.5 MG/0.5 ML Syringe IVPUSH ONE (15:31)
[2019-11-06] MEDS ORDERED: Diatrizoate Meglumine/Diatrizoate Sodium 37% 120 ML Bottle PO ONE (16:29)
[2019-11-06] MEDS ORDERED: Iopamidol 612 MG/ML 100 ML Bottle IVPUSH ONE (16:29)
[2019-11-06] MEDS ORDERED: Sodium Chloride 0.9% 10 ML Syringe FLUSH PRN (16:29)
[2019-11-06] MEDS ORDERED: Metoclopramide 10 MG/2 ML SDV IVPUSH ONE (16:30)
--- NOTE | 2019-11-06 17:26 | CT ---
CT abdomen and pelvis Technique: Multiple axial sections were obtained from above the dome of the diaphragm inferiorly through the pubic symphysis. Intravenous contrast and oral contrast has been given. Comparison: No prior CT abdomen or pelvis exam. Findings: Visualized lung bases show nothing acute. Liver contains no focal parenchymal abnormality. Surgical clips are noted from prior cholecystectomy. Spleen appears normal. Adrenal glands show no nodule. Pancreas is within normal limits. Kidneys show symmetric contrast enhancement without hydronephrosis or mass. Aorta shows no aneurysm. No retroperitoneal adenopathy is seen. Bowel wall thickening and prominent inflammatory change is seen around several small bowel loops within the upper abdomen. Findings are felt compatible with focal area of promine but nonspecific enteritis. There is mild bowel dilatation in this area of enteritis compatible with localized ileus. Other small bowel loops. Colon appears within normal limits. Appendix is seen which is normal in size. No pelvic mass or adenopathy is seen. Bone window settings were reviewed which shows prior lumbar spine surgery at L4-L5 and L5-S1. No acute osseous finding is appreciated. Impression: 1. Findings of enteritis as noted above. Diagnostic code #3 Study was dictated in [place] Standard Time
== END 2019-11-06 18:05 | disposition home or self-care (01) ==
LOC: JD.ED 13:35
DX: K52.9 Noninfective gastroenteritis and colitis, unspecified (principal); E78.00 Pure hypercholesterolemia, unspecified; I10 Essential (primary) hypertension; E11.42 Type 2 diabetes mellitus with diabetic polyneuropathy; E66.9 Obesity, unspecified; Z79.82 Long term (current) use of aspirin; Z79.84 Long term (current) use of oral hypoglycemic drugs; Z79.899 Other long term (current) drug therapy; Z87.891 Personal history of nicotine dependence; Z68.32 Body mass index [BMI] 32.0-32.9, adult
CPT/HCPCS: 36415; 74177; 80053; 81001; 83690; 84703; 85025; 96361; 96374; 96375; 96376; 99284; J1170; J2405; J2765; J7030; Q9963; Q9967; 99283

== ENCOUNTER 2019-11-11 13:37 | Emergency (ER) | payer BC ==
[2019-11-11] MEDS ORDERED: Sodium Chloride 0.9% 10 ML Syringe FLUSH PRN (14:55)
[2019-11-11] MEDS ORDERED: Metoclopramide 10 MG/2 ML SDV IVPUSH ONE (14:56)
[2019-11-11] MEDS ORDERED: Sodium Chloride 0.9% 1,000 ML IV SCH (15:00)
--- NOTE | 2019-11-11 15:45 | CR ---
Abdomen: Supine and upright views the abdomen were obtained. Comparison: No prior abdominal imaging is available. Findings: Calcifications are seen within the pelvis compatible with phleboliths. Prior lumbar spine surgery is noted. Surgical clips are seen within the upper right abdomen. Scattered gas within colon and small bowel is seen which appears within normal limits. No free air is seen. Impression: 1. Findings believed to be incidental. 2. Nothing acute is seen. Diagnostic code #2 This report was dictated in [place] Standard Time
--- NOTE | 2019-11-11 18:10 | EDM.PDOC ---
ED HPI GENERAL MEDICAL PROBLEM - General Chief Complaint: Abdominal Pain Stated Complaint: ABDOMINAL PAIN/VOMITING Time Seen by Provider: 11/11/19 14:34 Source of Information: Reports: Patient History Limitations: Reports: No Limitations - History of Present Illness INITIAL COMMENTS - FREE TEXT/NARRATIVE: Patient is a 44-year-old female who presents with complaints of abdominal cramping, vomiting, and watery diarrhea for the last 5 days. She was seen in the emergency department earlier in the week for similar symptoms. At that time a CT of her abdomen was completed and showed findings consistent with enteritis. She was discharged home with Zofran at that time. She states that since that time the symptoms been fairly constant. She has been able to keep some liquids down. She denies any fever, chills, rash or upper respiratory symptoms. She denies any blood or mucus in her stools. She denies any dysuria , frequency or back pain. Patient states that she was started on Trulicity 4 weeks ago. She states that that time she was initially prescribed the highest possible dose instead of the starting dose. She had symptoms similar to this when this medication was started, however symptoms did resolve after the dose was decreased. She has just taken her fourth dose of this medication at the lower dose. Her primary care provider is, Dr. Rios, in [place]. Abdomen Pain Score (Numeric/FACES): 7 - Related Data Allergies Allergy/AdvReac Type Severity Reaction Status Date / Time No Known Allergies Allergy Verified 11/06/19 13:51 Home Meds: Home Meds Aspirin 81 mg PO DAILY 01/04/18 [History] Gabapentin [Neurontin] 300 mg PO BEDTIME 01/04/18 [History] Lisinopril 20 mg PO DAILY 01/04/18 [History] metFORMIN [Glucophage XR] 1,000 mg PO BID 01/04/18 [History] tiZANidine HCl [Tizanidine HCl] 2 mg PO BEDTIME 01/04/18 [History] Calcium Carbonate [Calcium] 500 mg PO DAILY 09/27/18 [History] Fish Oil/Americus-3 Fatty Acids [Fish Oil 1,000 MG] 1 each PO DAILY 09/27/18 [ History] Hydrocodone/Acetaminophen [Hydrocodon-Acetaminophn 10-325] 1 - 2 tab PO Q6H [History] Ferrous Sulfate [Ferosul] 220 mg PO DAILY #150 ml 03/18/19 [Rx] Magnesium 1 tab PO BID 03/18/19 [History] atorvaSTATin [Lipitor] 20 mg PO DAILY 03/18/19 [History] Cyclobenzaprine [Flexeril] 5 mg PO BEDTIME 11/06/19 [History] Dulaglutide [Trulicity] 0.75 mg SQ FR 11/06/19 [History] Hydrocodone/Acetaminophen [Hydrocodon-Acetaminophen 5-325] 1 - 2 each PO Q6HR PRN #10 tablet 11/06/19 [Rx] Ondansetron [Zofran ODT] 4 mg PO Q6H PRN #20 tab.dis 11/06/19 [Rx] Dicyclomine [Bentyl] 20 mg PO TID PRN #10 tab 11/11/19 [Rx] Nitrofurantoin Monohyd/M-Cryst [Macrobid 100 mg Capsule] 100 mg PO BID #10 capsule 11/11/19 [Rx] Ondansetron [Zofran ODT] 4 mg PO Q6H PRN #10 tab.dis 11/11/19 [Rx] Past Medical History Cardiovascular History: Reports: High Cholesterol, Hypertension Other Cardiovascular History: palpatations Genitourinary History: Reports: Renal Calculus Musculoskeletal History: Reports: Back Pain, Chronic Neurological History: Reports: Neuropathy, Peripheral Endocrine/Metabolic History: Reports: Diabetes, Type II, Obesity/BMI 30+ - Past Surgical History HEENT Surgical History: Reports: Oral Surgery GI Surgical History: Reports: Cholecystectomy Other GI Surgeries/Procedures: 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 Neurological Surgical History: Reports: Lumbar Spine Other Neurological Surgeries/Procedures: left foot drop, L4-5 laminectomies (2) and fusion (2) Dermatological Surgical History: Reports: Other (See Below) Social & Family History - Family History Family Medical History: Noncontributory - Tobacco Use Smoking Status *Q: Former Smoker Used Tobacco, but Quit: Yes Month/Year Tobacco Last Used: 2 years ago - Caffeine Use Caffeine Use: Reports: None - Recreational Drug Use Recreational Drug Use: No - Living Situation & Occupation Living situation: Reports: , Alone 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 Denies: Fever, Chills HEENT: Reports: No Symptoms Respiratory: Reports: No Symptoms Cardiovascular: Reports: No Symptoms Endocrine: Reports: No Symptoms GI/Abdominal: Reports: Abdominal Pain (Generalized cramping), Diarrhea, Nausea, Vomiting. Denies: Bloody Stool, Distension, Hematemesis, Hematochezia : Reports: No Symptoms. Denies: Dysuria, Flank Pain, Frequency, Urgency Musculoskeletal: Reports: No Symptoms Skin: Reports: No Symptoms Neurological: Reports: No Symptoms Psychiatric: Reports: No Symptoms Hematologic/Lymphatic: Reports: No Symptoms Immunologic: Reports: No Symptoms ED EXAM, GI/ABD - Physical Exam Exam: See Below Exam Limited By: No Limitations General Appearance: Alert, WD/WN, Mild Distress Respiratory/Chest: No Respiratory Distress, Lungs Clear, Normal Breath Sounds, No Accessory Muscle Use, Chest Non-Tender Cardiovascular: Normal Peripheral Pulses, Regular Rate, Rhythm, No Edema, No Gallop, No JVD, No Murmur, No Rub GI/Abdominal Exam: Normal Bowel Sounds, Soft, No Organomegaly, No Distention, No Abnormal Bruit, No Mass, Pelvis Stable, Tender (Generalized tenderness throughout) Extremities: Normal Inspection, Normal Range of Motion, Non-Tender, Normal Capillary Refill, No Pedal Edema Neurological: Alert, Oriented, CN II-XII Intact, Normal Cognition, Normal Gait, Normal Reflexes, No Motor/Sensory Deficits Psychiatric: Normal Affect, Normal Mood Skin Exam: Warm, Dry, Intact, Normal Color, No Rash Course - Vital Signs Last Recorded V/S: Last Vital Signs Temp 99.1 F 11/11/19 19:05 Pulse 74 11/11/19 19:05 Resp 18 11/11/19 19:05 BP 155/89 H 11/11/19 19:05 Pulse Ox 96 11/11/19 19:05 - Orders/Labs/Meds Orders: Active Orders 24 hr Category Date Time Status Peripheral IV Care [RC] . DIRECTED Care 11/11/19 14:55 Active CULTURE URINE [RM] Stat Lab 11/11/19 17:40 Received Peripheral IV Insertion Adult [OM.PC] Stat Oth 11/11/19 14:55 Ordered Labs: Laboratory Tests 11/11/19 11/11/19 11/11/19 Range/Units 14:25 14:25 17:40 WBC 5.95 (3.98-10.04) K/mm3 RBC 4.63 (3.98-5.22) M/mm3 Hgb 13.2 (11.2-15.7) gm/dl Hct 39.8 (34.1-44.9) % MCV 86.0 (79.4-94.8) fl MCH 28.5 (25.6-32.2) pg MCHC 33.2 (32.2-35.5) g/dl RDW Std Deviation 42.6 (36.4-46.3) fL Plt Count 343 (182-369) K/mm3 MPV 10.9 (9.4-12.3) fl Neut % (Auto) 62.9 (34.0-71.1) % Lymph % (Auto) 27.6 (19.3-51.7) % [place] % (Auto) 7.4 (4.7-12.5) % Eos % (Auto) 1.2 (0.7-5.8) Baso % (Auto) 0.7 (0.1-1.2) % Neut # (Auto) 3.75 (1.56-6.13) K/mm3 Lymph # (Auto) 1.64 (1.18-3.74) K/mm3 [place] # (Auto) 0.44 H (0.24-0.36) K/mm3 Eos # (Auto) 0.07 (0.04-0.36) K/mm3 Baso # (Auto) 0.04 (0.01-0.08) K/mm3 Sodium 139 (136-145) mEq/L Potassium 3.5 (3.5-5.1) mEq/L Chloride 104 (98-107) mEq/L Carbon Dioxide 23 (21-32) mEq/L Anion Gap 15.5 H (5-15) BUN 6 L (7-18) mg/dL Creatinine 0.6 (0.55-1.02) mg/dL Est Cr Clr Drug Dosing 120.70 mL/min Estimated GFR (MDRD) > 60 (>60) mL/min BUN/Creatinine Ratio 10.0 L (14-18) Glucose 138 H (74-106) mg/dL Calcium 8.0 L (8.5-10.1) mg/dL Total Bilirubin 0.3 (0.2-1.0) mg/dL AST 28 (15-37) U/L ALT 43 (14-59) U/L Alkaline Phosphatase 45 L (46-116) U/L C-Reactive Protein 0.6 (<1.0) mg/dL Total Protein 7.2 (6.4-8.2) g/dl Albumin 3.6 (3.4-5.0) g/dl Globulin 3.6 gm/dL Albumin/Globulin Ratio 1.0 (1-2) Urine Color Yellow (Yellow) Urine Appearance Cloudy H (Clear) Urine pH 6.5 (5.0-8.0) Ur Specific [place] 1.025 (1.005-1.030) Urine Protein Trace H (Negative) Urine Glucose (UA) Negative (Negative) Urine Ketones Trace H (Negative) Urine Occult Blood 1+ H (Negative) Urine Nitrite Negative (Negative) Urine Bilirubin Negative (Negative) Urine Urobilinogen 0.2 (0.2-1.0) Ur Leukocyte Esterase 2+ H (Negative) Urine RBC 5-10 H (0-5) /hpf Urine WBC 40-50 H (0-5) /hpf Ur Squamous Epith Cells 0-5 (0-5) /hpf Amorphous Sediment Many H (NOT SEEN) /hpf Urine Bacteria Moderate H (FEW) /hpf Urine Mucus Moderate H (FEW) /hpf Meds: Medications Discontinued Medications Generic Name Dose Route Start Last Admin Trade Name Alfredq PRN Reason Stop Dose Admin Dicyclomine HCl 20 mg 11/11/19 18:19 11/11/19 18:34 Bentyl PO 11/11/19 18:20 20 mg ONETIME ONE Administration Sodium Chloride 1,000 mls @ 999 mls/hr 11/11/19 15:00 11/11/19 15:10 Normal Saline IV 999 mls/hr ASDIRECTED SOLEDAD Administration Ceftriaxone Sodium 2 gm/ 100 mls @ 200 mls/hr 11/11/19 18:30 11/11/19 18:32 Sodium Chloride IV 200 mls/hr Q24H SOLEDAD Administration Metoclopramide HCl 7.5 mg 11/11/19 14:56 11/11/19 15:07 Reglan IVPUSH 11/11/19 14:57 7.5 mg ONETIME ONE Administration Ondansetron HCl 4 mg 11/11/19 18:19 11/11/19 18:29 Zofran IVPUSH 11/11/19 18:20 4 mg ONETIME ONE Administration Sodium Chloride 10 ml 11/11/19 14:55 11/11/19 14:25 Saline Flush FLUSH 10 ml ASDIRECTED PRN Administration Keep Vein Open - Re-Assessments/Exams Free Text/Narrative Re-Assessment/Exam: Hematology was significant for an anion gap slightly elevated at 15.5. It was otherwise unremarkable. Urinalysis was positive for a urinary tract infection. Abdomen x-ray showed a normal bowel gas pattern with no air-fluid levels or bowel dilation. Based on patient's symptoms, I feel it is likely that she is still suffering from a viral gastroenteritis in addition to a urinary tract infection that has developed since her previous visit to the emergency department. Patient verbalized improvement in symptoms of nausea with the Reglan. She received a dose of Rocephin IV to treat her urinary tract infection. I have also provided her with Bentyl for abdominal cramping as well as a dose of Zofran for nausea.. I will send prescriptions for Zofran, Bentyl, and Macrobid to the pharmacy. Departure - Departure Time of Disposition: 18:48 Disposition: Home, Self-Care 01 Condition: Fair Clinical Impression: Gastroenteritis Urinary tract infection Qualifiers: Urinary tract infection type: site unspecified Hematuria presence: without hematuria Qualified Code(s): N39.0 - Urinary tract infection, site not specified - Discharge Information *PRESCRIPTION DRUG MONITORING PROGRAM REVIEWED*: No *COPY OF PRESCRIPTION DRUG MONITORING REPORT IN PATIENT JACINTO: No Prescriptions: Dicyclomine [Bentyl] 20 mg PO TID PRN #10 tab PRN Reason: abdominal cramping Nitrofurantoin Monohyd/M-Cryst [Macrobid 100 mg Capsule] 100 mg PO BID #10 capsule Ondansetron [Zofran ODT] 4 mg PO Q6H PRN #10 tab.dis PRN Reason: Nausea/Vomiting Instructions: Viral Gastroenteritis, Adult, Urinary Tract Infection, Adult, Vady-nt-Oehp Referrals: Brittany Lantigua MD [Ordering Only Provider] - Forms: ED Department Discharge, ED Return to Work/School Form Additional Instructions: You were seen in the emergency department today for vomiting, abdominal cramping , and watery diarrhea for the last 5 days. Your work-up included blood work, urinalysis, and an abdomen x-ray. Your blood work showed that you are slightly dehydrated, however it was otherwise normal. Urinalysis was positive for urinary tract infection. X-ray of the abdomen was negative for any abnormalities. While in the ER you received a liter of IV fluids, Reglan for nausea, Bentyl for abdominal cramping, and Rocephin which is an antibiotic for your urinary tract infection. A prescription has been sent to [facility] for Bentyl , Zofran, and Macrobid. Take these medications as prescribed. Recommend that you follow-up with your primary care provider at her next available appointment. If you should experience any worsening symptoms such as worsening abdominal pain , blood in your stool, blood in your vomit, or any other symptoms of concern, please return to the emergency department. Also if you fail to improve over the course of the next few days, I would recommend that you return to the emergency department. Sepsis Event Note - Evaluation Sepsis Screening Result: No Definite Risk - Focused Exam Vital Signs: Vital Signs Temp Pulse Resp BP Pulse Ox 11/11/19 19:05 99.1 F 74 18 155/89 H 96 11/11/19 13:48 98.7 F 87 16 154/111 H 100 Date Exam was Performed: 11/11/19 Time Exam was Performed: 19:52 - My Orders Last 24 Hours: My Active Orders 11/11/19 14:55 Peripheral IV Care [RC] . DIRECTED Peripheral IV Insertion Adult [OM.PC] Stat 11/11/19 17:40 CULTURE URINE [RM] Stat - Assessment/Plan Last 24 Hours: My Active Orders 11/11/19 14:55 Peripheral IV Care [RC] . DIRECTED Peripheral IV Insertion Adult [OM.PC] Stat 11/11/19 17:40 CULTURE URINE [RM] Stat
[2019-11-11] MEDS ORDERED: Dicyclomine 10 MG Cap PO ONE (18:19)
[2019-11-11] MEDS ORDERED: Ondansetron 4 MG/2 ML SDV IVPUSH ONE (18:19)
[2019-11-11] MEDS ORDERED: cefTRIAXone 2 GM in Sodium Chloride 0.9% 100 ML IV SCH (18:30)
== END 2019-11-11 19:16 | disposition home or self-care (01) ==
LOC: JD.ED 13:37
DX: K52.9 Noninfective gastroenteritis and colitis, unspecified (principal); N39.0 Urinary tract infection, site not specified; E78.00 Pure hypercholesterolemia, unspecified; I10 Essential (primary) hypertension; E11.42 Type 2 diabetes mellitus with diabetic polyneuropathy; E66.9 Obesity, unspecified; Z79.82 Long term (current) use of aspirin; Z79.899 Other long term (current) drug therapy; Z79.84 Long term (current) use of oral hypoglycemic drugs; Z87.891 Personal history of nicotine dependence; Z68.32 Body mass index [BMI] 32.0-32.9, adult
CPT/HCPCS: 36415; 74019; 80053; 81001; 85025; 86140; 87086; 96361; 96365; 96375; 99284; A9270; J0696; J2405; J2765; J7030; J7050

== ENCOUNTER 2020-05-30 13:44 | Emergency (ER) | payer SELFPAY ==
[2020-05-30] MEDS ORDERED: Sodium Chloride 0.9% 10 ML Syringe FLUSH PRN (14:24)
--- NOTE | 2020-05-30 14:51 | CR ---
Chest: Portable view of the chest was obtained. Comparison: No prior chest imaging is available. Heart size and mediastinum are normal. Slight linear areas of density are noted within the left mid and lower lung most likely due to atelectasis. Lungs otherwise are clear. Bony structures are unremarkable. Impression: 1. Slight atelectasis within left mid and lower lung. 2. Nothing acute is otherwise appreciated on portable chest x-ray. Diagnostic code #2 This report was dictated in MDT
--- NOTE | 2020-05-30 15:06 | EDM.PDOC ---
ED HPI GENERAL MEDICAL PROBLEM - General Chief Complaint: Chest Pain Stated Complaint: CHEST PAIN X 2 DAYS Time Seen by Provider: 05/30/20 14:23 Source of Information: Reports: Patient, RN Notes Reviewed History Limitations: Reports: No Limitations - History of Present Illness INITIAL COMMENTS - FREE TEXT/NARRATIVE: Patient is a 44-year-old female who presents to the ED for evaluation of her lingering chest pain. She is COVID positive, she [place] out [place] night [place]. She states that she started feeling sick this last Monday or Monday. She does live in a house with 9 other people, and states that there are 4 people that are positive in her household, all of which are quarantine in the basement. She is complaining of some mid central chest discomfort, that seems to radiate towards her left side. She does note that this is worsened after she has had a coughing fit, but does seem to linger after coughing. She is just not sure if her chest pain is due to her coughing, however the chest pain does seem to be colicky or intermittent, and has not stayed or has a constant nature. She has not had any fevers or chills, she states she has had fatigue, chest discomfort, cough, shortness of breath, congestion, pretty much all the other symptoms except for fever. Her primary care provider is Brittani Oconnell. States she has a history of getting bronchitis, but denies any other heart issues. She said she is taken Tylenol for pain management but has not used any ibuprofen as she is also diabetic. Left Chest Pain Score (Numeric/FACES): 6 - Related Data Allergies Allergy/AdvReac Type Severity Reaction Status Date / Time No Known Allergies Allergy Verified 11/06/19 13:51 Home Meds: Home Meds Aspirin 81 mg PO DAILY 01/04/18 [History] Gabapentin [Neurontin] 300 mg PO BEDTIME 01/04/18 [History] Lisinopril 20 mg PO DAILY 01/04/18 [History] metFORMIN [Glucophage XR] 1,000 mg PO BID 01/04/18 [History] tiZANidine HCl [Tizanidine HCl] 2 mg PO BEDTIME 01/04/18 [History] Calcium Carbonate [Calcium] 500 mg PO DAILY 09/27/18 [History] Fish Oil/[place]-3 Fatty Acids [Fish Oil 1,000 MG] 1 each PO DAILY 09/27/18 [History] Hydrocodone/Acetaminophen [Hydrocodon-Acetaminophn 10-325] 1 - 2 tab PO Q6H 09/27/18 [History] Magnesium 1 tab PO BID 03/18/19 [History] atorvaSTATin [Lipitor] 20 mg PO DAILY 03/18/19 [History] Cyclobenzaprine [Flexeril] 5 mg PO BEDTIME 11/06/19 [History] Dulaglutide [Trulicity] 0.75 mg SQ FR 11/06/19 [History] Dicyclomine [Bentyl] 20 mg PO TID PRN #10 tab 11/11/19 [Rx] Hydrocodone/Chlorphen P-Stirex [Hydrocodone-Chlorphen ER Susp] 5 ml PO BID PRN #120 robin.er.12h 05/30/20 [Rx] Past Medical History Cardiovascular History: Reports: High Cholesterol, Hypertension Other Cardiovascular History: palpatations Genitourinary History: Reports: Renal Calculus Musculoskeletal History: Reports: Back Pain, Chronic Neurological History: Reports: Neuropathy, Peripheral Endocrine/Metabolic History: Reports: Diabetes, Type II, Obesity/BMI 30+ - Infectious Disease History Infectious Disease History: Reports: Novel Coronavirus (05/25/2020) - Past Surgical History HEENT Surgical History: Reports: Oral Surgery GI Surgical History: Reports: Cholecystectomy Other GI Surgeries/Procedures: 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 Neurological Surgical History: Reports: Lumbar Spine Other Neurological Surgeries/Procedures: left foot drop, L4-5 laminectomies (2) and fusion (2) Dermatological Surgical History: Reports: Other (See Below) Social & Family History - Family History Family Medical History: Noncontributory - Tobacco Use Smoking Status *Q: Never Smoker - Caffeine Use Caffeine Use: Reports: Energy Drinks - Recreational Drug Use Recreational Drug Use: No - Living Situation & Occupation Living situation: Reports: , Alone 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 ED EXAM, GENERAL - Physical Exam Exam: See Below Exam Limited By: No Limitations General Appearance: Alert, WD/WN, No Apparent Distress Head: Atraumatic, Normocephalic Neck: Normal Inspection Respiratory/Chest: No Respiratory Distress, Lungs Clear, No Accessory Muscle Use, Chest Non-Tender, Decreased Breath Sounds (diffuse bilaterally) Cardiovascular: Normal Peripheral Pulses, Regular Rate, Rhythm, No Murmur Peripheral Pulses: 2+: Radial (L), Radial (R) GI/Abdominal: Normal Bowel Sounds, Soft, Non-Tender, No Distention, No Mass Extremities: Normal Inspection, Normal Range of Motion, Normal Capillary Refill Neurological: Alert, Oriented, Normal Cognition, No Motor/Sensory Deficits Psychiatric: Normal Affect, Normal Mood EKG INTERPRETATION EKG Date: 05/30/20 Time: 15:02 Rhythm: NSR Rate (Beats/Min): 83 [place]: Normal P-Wave: Present QRS: Normal ST-T: Normal QT: Normal EKG Interpretation Comments: No obvious ischemia or acute ST changes noted, reviewed by myself and Dr. Saavedra. Course - Vital Signs Last Recorded V/S: Last Vital Signs Temp 98.2 F 05/30/20 14:26 Pulse 84 05/30/20 14:26 Resp 20 05/30/20 14:26 BP 180/113 H 05/30/20 14:26 Pulse Ox 98 05/30/20 14:26 - Orders/Labs/Meds Orders: Active Orders 24 hr Category Date Time Status EKG Documentation Completion [RC] STAT Care 05/30/20 14:24 Ordered Peripheral IV Care [RC] . DIRECTED Care 05/30/20 14:25 Ordered Sodium Chloride 0.9% [Saline Flush] Med 05/30/20 14:24 Ordered 10 ml FLUSH ASDIRECTED PRN Peripheral IV Insertion Adult [OM.PC] Routine Oth 05/30/20 14:24 Ordered Medication Orders Sodium Chloride (Saline Flush) 10 ml FLUSH ASDIRECTED PRN PRN Reason: Keep Vein Open Last Admin: 05/30/20 15:03 Dose: 10 ml Documented by: ZINA Labs: Laboratory Tests 05/30/20 05/30/20 05/30/20 Range/Units 15:09 15:09 15:09 WBC 6.10 (3.98-10.04) K/mm3 RBC 4.49 (3.98-5.22) M/mm3 Hgb 11.8 (11.2-15.7) gm/dl Hct 37.7 (34.1-44.9) % MCV 84.0 (79.4-94.8) fl MCH 26.3 (25.6-32.2) pg MCHC 31.3 L (32.2-35.5) g/dl RDW Std Deviation 41.4 (36.4-46.3) fL Plt Count 326 (182-369) K/mm3 MPV 10.3 (9.4-12.3) fl Neutrophils % (Manual) 61 H (40-60) % Band Neutrophils % 0 (0-10) % Lymphocytes % (Manual) 35 (20-40) % Atypical Lymphs % 0 % Monocytes % (Manual) 1 L (2-10) % Eosinophils % (Manual) 2 (0.7-5.8) % Basophils % (Manual) 1 (0.1-1.2) Platelet Estimate Adequate Plt Morphology Comment Normal RBC Morph Comment Normal PT 10.3 (9.7-11.7) SECONDS INR 0.96 APTT 23 (22-31) SECONDS D-Dimer, Quantitative 0.42 (0.19-0.50) mg/L Sodium (136-145) mEq/L Potassium (3.5-5.1) mEq/L Chloride (98-107) mEq/L Carbon Dioxide (21-32) mEq/L Anion Gap (5-15) BUN (7-18) mg/dL Creatinine (0.55-1.02) mg/dL Est Cr Clr Drug Dosing mL/min Estimated GFR (MDRD) (>60) mL/min BUN/Creatinine Ratio (14-18) Glucose (74-106) mg/dL Lactic Acid (0.4-2.0) mmol/L Calcium (8.5-10.1) mg/dL Magnesium (1.8-2.4) mg/dl Ferritin (8-252) ng/ml Total Bilirubin (0.2-1.0) mg/dL AST (15-37) U/L ALT (14-59) U/L Alkaline Phosphatase (46-116) U/L Lactate Dehydrogenase (81-234) U/L Troponin I (0.00-0.056) ng/mL C-Reactive Protein <0.2 (<1.0) mg/dL NT-Pro-B Natriuret Pep (0-125) pg/mL Total Protein (6.4-8.2) g/dl Albumin (3.4-5.0) g/dl Globulin gm/dL Albumin/Globulin Ratio (1-2) 05/30/20 05/30/20 05/30/20 Range/Units 15:09 15:09 15:09 WBC (3.98-10.04) K/mm3 RBC (3.98-5.22) M/mm3 Hgb (11.2-15.7) gm/dl Hct (34.1-44.9) % MCV (79.4-94.8) fl MCH (25.6-32.2) pg MCHC (32.2-35.5) g/dl RDW Std Deviation (36.4-46.3) fL Plt Count (182-369) K/mm3 MPV (9.4-12.3) fl Neutrophils % (Manual) (40-60) % Band Neutrophils % (0-10) % Lymphocytes % (Manual) (20-40) % Atypical Lymphs % % Monocytes % (Manual) (2-10) % Eosinophils % (Manual) (0.7-5.8) % Basophils % (Manual) (0.1-1.2) Platelet Estimate Plt Morphology Comment RBC Morph Comment PT (9.7-11.7) SECONDS INR APTT (22-31) SECONDS D-Dimer, Quantitative (0.19-0.50) mg/L Sodium 138 (136-145) mEq/L Potassium 3.6 (3.5-5.1) mEq/L Chloride 103 (98-107) mEq/L Carbon Dioxide 25 (21-32) mEq/L Anion Gap 13.6 (5-15) BUN 12 (7-18) mg/dL Creatinine 0.5 L (0.55-1.02) mg/dL Est Cr Clr Drug Dosing 144.84 mL/min Estimated GFR (MDRD) > 60 (>60) mL/min BUN/Creatinine Ratio 24.0 H (14-18) Glucose 197 H (74-106) mg/dL Lactic Acid (0.4-2.0) mmol/L Calcium 8.3 L (8.5-10.1) mg/dL Magnesium 1.4 L (1.8-2.4) mg/dl Ferritin 8 (8-252) ng/ml Total Bilirubin 0.3 (0.2-1.0) mg/dL AST 14 L (15-37) U/L ALT 25 (14-59) U/L Alkaline Phosphatase 45 L (46-116) U/L Lactate Dehydrogenase 152 (81-234) U/L Troponin I < 0.017 (0.00-0.056) ng/mL C-Reactive Protein (<1.0) mg/dL NT-Pro-B Natriuret Pep 84 (0-125) pg/mL Total Protein 7.1 (6.4-8.2) g/dl Albumin 3.4 (3.4-5.0) g/dl Globulin 3.7 gm/dL Albumin/Globulin Ratio 0.9 L (1-2) 05/30/20 Range/Units 15:09 WBC (3.98-10.04) K/mm3 RBC (3.98-5.22) M/mm3 Hgb (11.2-15.7) gm/dl Hct (34.1-44.9) % MCV (79.4-94.8) fl MCH (25.6-32.2) pg MCHC (32.2-35.5) g/dl RDW Std Deviation (36.4-46.3) fL Plt Count (182-369) K/mm3 MPV (9.4-12.3) fl Neutrophils % (Manual) (40-60) % Band Neutrophils % (0-10) % Lymphocytes % (Manual) (20-40) % Atypical Lymphs % % Monocytes % (Manual) (2-10) % Eosinophils % (Manual) (0.7-5.8) % Basophils % (Manual) (0.1-1.2) Platelet Estimate Plt Morphology Comment RBC Morph Comment PT (9.7-11.7) SECONDS INR APTT (22-31) SECONDS D-Dimer, Quantitative (0.19-0.50) mg/L Sodium (136-145) mEq/L Potassium (3.5-5.1) mEq/L Chloride (98-107) mEq/L Carbon Dioxide (21-32) mEq/L Anion Gap (5-15) BUN (7-18) mg/dL Creatinine (0.55-1.02) mg/dL Est Cr Clr Drug Dosing mL/min Estimated GFR (MDRD) (>60) mL/min BUN/Creatinine Ratio (14-18) Glucose (74-106) mg/dL Lactic Acid 1.6 (0.4-2.0) mmol/L Calcium (8.5-10.1) mg/dL Magnesium (1.8-2.4) mg/dl Ferritin (8-252) ng/ml Total Bilirubin (0.2-1.0) mg/dL AST (15-37) U/L ALT (14-59) U/L Alkaline Phosphatase (46-116) U/L Lactate Dehydrogenase (81-234) U/L Troponin I (0.00-0.056) ng/mL C-Reactive Protein (<1.0) mg/dL NT-Pro-B Natriuret Pep (0-125) pg/mL Total Protein (6.4-8.2) g/dl Albumin (3.4-5.0) g/dl Globulin gm/dL Albumin/Globulin Ratio (1-2) Meds: Medications Generic Name Dose Route Start Last Admin Trade Name Freq PRN Reason Stop Dose Admin Sodium Chloride 10 ml 05/30/20 14:24 05/30/20 15:03 Saline Flush FLUSH 10 ml ASDIRECTED PRN Administration Keep Vein Open - Re-Assessments/Exams Free Text/Narrative Re-Assessment/Exam: 05/30/20 15:08 Patient presents to the ED for the evaluation of her central chest pain. I do believe that her chest discomfort is from coughing from the coronavirus. She does have reproducible chest tenderness on palpation to her left chest where she is having pain. EKG shows no sign of any acute ischemia. Labs are pending. Chest x-ray demonstrates slight atelectasis within the left mid and lower lung, but no other acute findings. 05/30/20 16:11 Laboratory evaluation demonstrated no focal abnormalities that require further work-up or hospitalization. Patient will be discharged home with a prescription for cough medication at this time. Departure - Departure Time of Disposition: 16:11 Disposition: Home, Self-Care 01 Condition: Good Clinical Impression: COVID-19 Prescriptions: Hydrocodone/Chlorphen P-Stirex [Hydrocodone-Chlorphen ER Susp] 5 ml PO BID PRN #120 robin.er.12h PRN Reason: Cough Instructions: COVID-19 Frequently Asked Questions Referrals: Brittani Oconnell NP [Primary Care Provider] - Forms: ED Department Discharge Additional Instructions: You were seen in the ER today for ongoing and/or worsening respiratory symptoms. Your chest x-ray showed no signs of pneumonia at this time. Your oxygen levels were great at 96-97% on room air. Laboratory evaluation demonstrated no abnormalities, you are not suffering from a heart attack at today's visit. Please try to increase your oral fluid intake, and eat multiple small meals throughout the day, to keep yourself healthy. You may take 500 mg Tylenol every hours 6 hours for pain/fever relief. Do not exceed 4000 mg Tylenol in a 24-hour time span. However, running a fever is your body's natural response to illness, and it allows the body to develop antibodies to disease, we are recommending trying to limit the use of Tylenol as much as possible to allow your body's natural immune response. You may take 600 mg ibuprofen every 6 hours as needed for further chest discomfort due to the coughing. Do not exceed 3200 mg in a 24-hour time span. You were given a prescription for cough medication, you may pick this up at the [facility] located near [facility] on Monday. Your brother may pick this prescription up for you, they may ask them for information like your birthdate, or address. Please make sure that he knows this so he can pear picker your medications. Please return to the ER at any time if your symptoms should change or worsen. Sepsis Event Note (ED) - Evaluation Sepsis Screening Result: No Definite Risk - Focused Exam Vital Signs: Vital Signs Temp Pulse Resp BP Pulse Ox 05/30/20 14:26 98.2 F 84 20 180/113 H 98 - My Orders Last 24 Hours: My Active Orders 05/30/20 14:24 EKG Documentation Completion [RC] STAT Sodium Chloride 0.9% [Saline Flush] 10 ml FLUSH ASDIRECTED PRN Peripheral IV Insertion Adult [OM.PC] Routine 05/30/20 14:25 Peripheral IV Care [RC] . DIRECTED - Assessment/Plan Last 24 Hours: My Active Orders 05/30/20 14:24 EKG Documentation Completion [RC] STAT Sodium Chloride 0.9% [Saline Flush] 10 ml FLUSH ASDIRECTED PRN Peripheral IV Insertion Adult [OM.PC] Routine 05/30/20 14:25 Peripheral IV Care [RC] . DIRECTED
== END 2020-05-30 16:35 | disposition home or self-care (01) ==
LOC: JD.ED 13:44
DX: U07.1 COVID-19 (principal); E78.00 Pure hypercholesterolemia, unspecified; E11.42 Type 2 diabetes mellitus with diabetic polyneuropathy; I10 Essential (primary) hypertension; E66.9 Obesity, unspecified; Z68.31 Body mass index [BMI] 31.0-31.9, adult; Z79.82 Long term (current) use of aspirin; Z79.84 Long term (current) use of oral hypoglycemic drugs
CPT/HCPCS: 36415; 71045; 71045-26; 80053; 82728; 83605; 83615; 83735; 83880; 84484; 85007; 85027; 85379; 85610; 85730; 86140; 93010; 99283; 99285-25

== ENCOUNTER 2020-11-03 14:19 | Emergency (ER) | payer OTHER ==
[2020-11-03] MEDS ORDERED: HYDROmorphone 1 MG/ML Syringe IVPUSH STA (14:46)
[2020-11-03] MEDS ORDERED: Metoclopramide 10 MG/2 ML SDV IVPUSH ONE (14:48)
--- NOTE | 2020-11-03 14:54 | EDM.PDOC ---
ED HPI GENERAL MEDICAL PROBLEM - General Chief Complaint: Abdominal Pain Stated Complaint: ABDOMINAL PAIN/VOMITING Time Seen by Provider: 11/03/20 14:31 Source of Information: Reports: Patient, RN Notes Reviewed History Limitations: Reports: No Limitations - History of Present Illness INITIAL COMMENTS - FREE TEXT/NARRATIVE: Patient is a 45-year-old female who presents to the ED for the evaluation of her abdomen pain/nausea/vomiting/diarrhea. Patient notes that this has been present since around October 23. She has seen Brittani Oconnell, 2 times in the last week and a half for these issues had some labs taken, and was given some Zofran. Patient has not had any recent abdominal imaging. Patient was advised by her provider, Brittani Oconnell that she should come to the ER if she feels she might be dehydrated. Patient states that she takes Zofran for her nausea, before she eats she has to take 2 tablets of this and then the nausea seems to subside a little bit, so she can eat. She states she has been "overeating", and was able to keep 3 pieces of toast down earlier today without vomiting these backup. She notes she has been having for 5 very watery stools per day. She notes these are not foul-smelling. Patient states that she has had her gallbladder taken out, and she notes that the pain feels somewhat similar.she states the pain is constant in nature, and cramping. She points to her epigastrium and left upper quadrant as the main source of the pain and notes that this does radiate to her back as well. She has not had any fevers or chills, cough or shortness of breath. She did have COVID-19 in May 2020. Patient denies any chance of , and she just started her menses yesterday. Patient has chronic back pain for which she takes hydrocodone for, and she states that this is not helping much for the pain either. Patient is a diabetic, but denies any alcohol use. Upper Abdominal Pain Score (Numeric/FACES): 4 - Related Data Allergies Allergy/AdvReac Type Severity Reaction Status Date / Time No Known Allergies Allergy Verified 11/03/20 14:33 Home Meds: Home Meds Aspirin 81 mg PO DAILY 01/04/18 [History] Gabapentin [Neurontin] 300 mg PO BEDTIME 01/04/18 [History] Lisinopril 20 mg PO DAILY 01/04/18 [History] metFORMIN [Glucophage XR] 1,000 mg PO BID 01/04/18 [History] tiZANidine HCl [Tizanidine HCl] 2 mg PO BEDTIME 01/04/18 [History] Calcium Carbonate [Calcium] 500 mg PO DAILY 09/27/18 [History] Fish Oil/[place]-3 Fatty Acids [Fish Oil 1,000 MG] 1 each PO DAILY 09/27/18 [History] Hydrocodone/Acetaminophen [Hydrocodon-Acetaminophn 10-325] 1 - 2 tab PO Q6H 09/27/18 [History] Magnesium 1 tab PO BID 03/18/19 [History] atorvaSTATin [Lipitor] 20 mg PO DAILY 03/18/19 [History] Cyclobenzaprine [Flexeril] 5 mg PO BEDTIME 11/06/19 [History] Dulaglutide [Trulicity] 0.75 mg SQ FR 11/06/19 [History] Dicyclomine [Bentyl] 20 mg PO TID PRN #10 tab 11/11/19 [Rx] Hydrocodone/Chlorphen P-Stirex [Hydrocodone-Chlorphen ER Susp] 5 ml PO BID PRN #120 robin.er.12h 05/30/20 [Rx] Dicyclomine [Bentyl] 20 mg PO TID #15 tab 11/03/20 [Rx] Past Medical History Cardiovascular History: Reports: High Cholesterol, Hypertension Other Cardiovascular History: palpatations Genitourinary History: Reports: Renal Calculus Musculoskeletal History: Reports: Back Pain, Chronic Neurological History: Reports: Neuropathy, Peripheral Endocrine/Metabolic History: Reports: Diabetes, Type II, Obesity/BMI 30+ - Infectious Disease History Infectious Disease History: Reports: Novel Coronavirus (05/25/2020) Other Infectious Disease History: covid - Past Surgical History HEENT Surgical History: Reports: Oral Surgery GI Surgical History: Reports: Cholecystectomy Other GI Surgeries/Procedures: 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 ED EXAM, GI/ABD - Physical Exam Exam: See Below Exam Limited By: No Limitations General Appearance: Alert, WD/WN, No Apparent Distress Respiratory/Chest: No Respiratory Distress, Lungs Clear, Normal Breath Sounds, No Accessory Muscle Use, Chest Non-Tender Cardiovascular: Normal Peripheral Pulses, Regular Rate, Rhythm, No Edema GI/Abdominal Exam: Normal Bowel Sounds, Soft, No Distention, No Mass, Tender (epgastrium/LUQ exquisitely tender) Extremities: Normal Inspection, Normal Capillary Refill Neurological: Alert, Oriented, Normal Cognition, No Motor/Sensory Deficits Psychiatric: Normal Affect, Normal Mood Skin Exam: Warm, Dry, Intact, Normal Color, No Rash Course - Vital Signs Last Recorded V/S: Last Vital Signs Temp 97.6 F 11/03/20 14:28 Pulse 86 11/03/20 14:28 Resp 16 11/03/20 14:28 BP 155/101 H 11/03/20 14:28 Pulse Ox 97 11/03/20 14:28 - Orders/Labs/Meds Orders: Active Orders 24 hr Category Date Time Status Sodium Chloride 0.9% [Normal Saline] 1,000 ml Med 11/03/20 15:00 Ordered IV ASDIRECTED Medication Orders Sodium Chloride (Normal Saline) 1,000 mls @ 999 mls/hr IV ASDIRECTED SOLEDAD Last Admin: 11/03/20 15:21 Dose: 999 mls/hr Documented by: DANNY Labs: Laboratory Tests 11/03/20 11/03/20 11/03/20 Range/Units 15:15 15:15 16:45 WBC 8.43 (3.98-10.04) K/mm3 RBC 4.61 (3.98-5.22) M/mm3 Hgb 11.4 (11.2-15.7) gm/dl Hct 36.6 (34.1-44.9) % MCV 79.4 D (79.4-94.8) fl MCH 24.7 L (25.6-32.2) pg MCHC 31.1 L (32.2-35.5) g/dl RDW Std Deviation 42.1 (36.4-46.3) fL Plt Count 317 (182-369) K/mm3 MPV 10.2 (9.4-12.3) fl Neutrophils % (Manual) 77 H (40-60) % Band Neutrophils % 0 (0-10) % Lymphocytes % (Manual) 21 (20-40) % Atypical Lymphs % 0 % Monocytes % (Manual) 2 (2-10) % Eosinophils % (Manual) 0 L (0.7-5.8) % Basophils % (Manual) 0 L (0.1-1.2) Platelet Estimate Adequate Hypochromasia 1+ slight Poikilocytosis 1+ slight Ovalocytes 1+ slight RBC Morph Comment Not Reportable Sodium 141 (136-145) mEq/L Potassium 3.5 (3.5-5.1) mEq/L Chloride 103 (98-107) mEq/L Carbon Dioxide 26 (21-32) mEq/L Anion Gap 15.5 H (5-15) BUN 10 (7-18) mg/dL Creatinine 0.6 (0.55-1.02) mg/dL Est Cr Clr Drug Dosing 119.44 mL/min Estimated GFR (MDRD) > 60 (>60) mL/min BUN/Creatinine Ratio 16.7 (14-18) Glucose 119 H (74-106) mg/dL Calcium 8.6 (8.5-10.1) mg/dL Total Bilirubin 0.4 (0.2-1.0) mg/dL AST 15 (15-37) U/L ALT 24 (14-59) U/L Alkaline Phosphatase 42 L (46-116) U/L Total Protein 7.3 (6.4-8.2) g/dl Albumin 3.7 (3.4-5.0) g/dl Globulin 3.6 gm/dL Albumin/Globulin Ratio 1.0 (1-2) Lipase 257 (73-393) U/L Urine Color Yellow (Yellow) Urine Appearance Clear (Clear) Urine pH 6.0 (5.0-8.0) Ur Specific [place] 1.010 (1.005-1.030) Urine Protein Negative (Negative) Urine Glucose (UA) Negative (Negative) Urine Ketones Negative (Negative) Urine Occult Blood 3+ H (Negative) Urine Nitrite Negative (Negative) Urine Bilirubin Negative (Negative) Urine Urobilinogen 0.2 (0.2-1.0) Ur Leukocyte Esterase Negative (Negative) Urine RBC 10-20 H (0-5) /hpf Urine WBC 0-5 (0-5) /hpf Ur Squamous Epith Cells 0-5 (0-5) /hpf Urine Bacteria Few (FEW) /hpf Urine Mucus Not seen (FEW) /hpf Meds: Medications Generic Name Dose Route Start Last Admin Trade Name Freq PRN Reason Stop Dose Admin Sodium Chloride 1,000 mls @ 999 mls/hr 11/03/20 15:00 11/03/20 15:21 Normal Saline IV 999 mls/hr ASDIRECTED SOLEDAD Administration Discontinued Medications Generic Name Dose Route Start Last Admin Trade Name Freq PRN Reason Stop Dose Admin Diatrizoate Meglum/Diatrizoate Sod 90 ml 11/03/20 16:22 11/03/20 16:24 Gastrografin 37% PO 11/03/20 16:23 90 ml ONETIME ONE Administration Hydromorphone HCl 1 mg 11/03/20 14:46 11/03/20 15:35 Dilaudid IVPUSH 11/03/20 14:47 1 mg ONETIME STA Administration Iopamidol 100 ml 11/03/20 16:22 11/03/20 16:24 Isovue-300 (61%) IVPUSH 11/03/20 16:23 100 ml ONETIME ONE Administration Metoclopramide HCl 10 mg 11/03/20 14:48 11/03/20 15:20 Reglan IVPUSH 11/03/20 14:49 10 mg ONETIME ONE Administration Sodium Chloride 10 ml 11/03/20 16:22 11/03/20 16:24 Saline Flush FLUSH 11/03/20 16:23 10 ml ONETIME ONE Administration - Re-Assessments/Exams Free Text/Narrative Re-Assessment/Exam: 11/03/20 14:53 Patient presents to the ED for her epigastric discomfort, along with nausea/vomiting/diarrhea. We will go ahead and start IV get her some IV fluids, 1 mg Dilaudid, 10 mg Reglan for nausea management along with abdomen pelvis CT with IV and oral contrast as much as she can tolerate and repeat some basic labs. Patient has a history of diabetes, and she is exquisitely tender in her epigastrium/left upper quadrant. 11/03/20 17:26 The patient's laboratory evaluation demonstrates no focal abnormalities, the patient CT demonstrates slight increase stool within the colon. Mild atelectasis in both lung bases. Mild fatty infiltration within the liver, no other acute abnormalities are appreciated. I do highly believe that the patient is suffering from gastroenteritis and has been doctoring with your regular doctor for this. She has some antinausea medications at home, we will try to get her to observe a clear liquid diet for 48 to 72 hours then advance to a bland as tolerated to see if this helps reset her system. Departure - Departure Time of Disposition: 17:36 Disposition: Home, Self-Care 01 Condition: Good Clinical Impression: Viral gastroenteritis - Discharge Information *PRESCRIPTION DRUG MONITORING PROGRAM REVIEWED*: No *COPY OF PRESCRIPTION DRUG MONITORING REPORT IN PATIENT JACINTO: No Instructions: Viral Gastroenteritis, Adult, [id number], Food Choices to Help Relieve Diarrhea, Adult Referrals: Brittani Oconnell NP [Primary Care Provider] - Forms: ED Department Discharge Additional Instructions: You have been evaluated in the ED for nausea/vomiting/diarrhea. It is likely that this is caused from a viral gastroenteritis. Your CT demonstrated no focal abnormalities that would point us in the direction of what would be causing this. Again it is highly likely that this is viral and should work itself out of your system and time. You have received IV fluid in the ED to help with the dehydration from the vomiting and diarrhea. Over the next 24-48 hours please try to limit diet to clear liquids and advance as tolerate to a bland diet to alleviate symptoms of nausea/vomiting/diarrhea. Please use your previously prescribed nausea medications as directed from your regular care provider for nausea. You were given a prescription for dicyclomine or Bentyl, for the abdomen cramping, please take as directed for further abdomen cramps. You may use an [id number] medication like Imodium (loperamide) for increased diarrhea. Please note that if you use too much of this you might actually make her self constipated I would recommend only using 1 or 2 doses of this for ongoing diarrhea management. Please return to the ED if your symptoms should change or worsen. Sepsis Event Note (ED) - Evaluation Sepsis Screening Result: No Definite Risk - Focused Exam Vital Signs: Vital Signs Temp Pulse Resp BP Pulse Ox 11/03/20 14:28 97.6 F 86 16 155/101 H 97 - My Orders Last 24 Hours: My Active Orders 11/03/20 15:00 Sodium Chloride 0.9% [Normal Saline] 1,000 ml IV ASDIRECTED - Assessment/Plan Last 24 Hours: My Active Orders 11/03/20 15:00 Sodium Chloride 0.9% [Normal Saline] 1,000 ml IV ASDIRECTED
[2020-11-03] MEDS ORDERED: Sodium Chloride 0.9% 1,000 ML IV SCH (15:00)
[2020-11-03] MEDS ORDERED: Sodium Chloride 0.9% 10 ML Syringe FLUSH ONE (16:22)
[2020-11-03] MEDS ORDERED: Iopamidol 612 MG/ML 100 ML Bottle IVPUSH ONE (16:22)
[2020-11-03] MEDS ORDERED: Diatrizoate Meglumine/Diatrizoate Sodium 37% 120 ML Bottle PO ONE (16:22)
--- NOTE | 2020-11-03 17:21 | CT ---
CT abdomen and pelvis Technique: Multiple axial sections were obtained from above the dome of the diaphragm inferiorly through the pubic symphysis. Intravenous and oral contrast was utilized. Delayed images were also obtained through the bladder. Reconstructed coronal and sagittal images were obtained. Comparison: Prior CT abdomen and pelvis study of 11/06/19. Findings: Visualized lung bases show mild atelectasis. Liver shows mild fatty infiltration. Spleen appears within normal limits. Adrenal glands show no nodule. Surgical clips are seen from prior cholecystectomy. Pancreas is within normal limits. Kidneys show symmetric contrast enhancement with no hydronephrosis or mass being seen. Abdominal aorta shows no aneurysm. No retroperitoneal adenopathy or mesenteric abnormalities are seen. Appendix is seen which is normal in size. Slight increased stool is seen throughout the colon. No pelvic mass or adenopathy is appreciated. Delayed images show contrast within the distal ureters and within the bladder. Prior surgery noted within the lower lumbar spine. No acute osseous finding is appreciated. Impression: 1. Slight increased stool within the colon. 2. Mild atelectasis within both lung bases. 3. Mild fatty infiltration within the liver. 4. No acute abnormality is seen within the abdomen and pelvis. Diagnostic code #2
== END 2020-11-03 17:55 | disposition home or self-care (01) ==
LOC: JD.ED 14:19
DX: A08.4 Viral intestinal infection, unspecified (principal); E78.00 Pure hypercholesterolemia, unspecified; I10 Essential (primary) hypertension; E11.42 Type 2 diabetes mellitus with diabetic polyneuropathy; E66.9 Obesity, unspecified; Z68.31 Body mass index [BMI] 31.0-31.9, adult; Z79.82 Long term (current) use of aspirin; Z79.84 Long term (current) use of oral hypoglycemic drugs; Z79.899 Other long term (current) drug therapy
CPT/HCPCS: 36415; 74177; 80053; 81001; 83690; 85007; 85027; 96374; 96375; 99284; J1170; J2765; J7030; Q9963; Q9967; 99283

== ENCOUNTER 2024-10-04 10:05 | Emergency (ER) | payer MEDICAID ==
[2024-10-04] MEDS ORDERED: Sodium Chloride 0.9% 10 ML Syringe FLUSH ONE (11:01)
[2024-10-04] MEDS: Iopamidol 755 Mg/ML 100 ML Bottle IVPUSH ONE (11:30)
[2024-10-04] MEDS: Sodium Chloride 0.9% 10 ML Syringe FLUSH PRN (11:30)
[2024-10-04 11:33] LABS: BASOPHILS ABSOLUTE AUTO 0.1 K/mm3 (0.0-0.2); BASOPHILS PERCENT AUTO 1.6 % (0.0-1.0); EOSINOPHILS ABSOLUTE AUTO 0.3 K/mm3 (0.0-0.4); EOSINOPHILS PERCENT AUTO 4.9 % (0.0-6.0); HEMATOCRIT 39.4 % (37.0-47.0); HEMOGLOBIN 12.7 gm/dl (12.0-16.0); IMMATURE GRAN ABSOLUTE AUTO 0.01 K/mm3 (0.00-0.05); IMMATURE GRAN PERCENT AUTO 0.2 % (0.0-0.4); LYMPHOCYTES ABSOLUTE AUTO 1.7 K/mm3 (1.0-4.8); MEAN CORPUSCULAR HEMOGLOBIN 27.7 pg (28.0-32.0); MEAN CORPUSCULAR HGB CONC 32.2 g/dl (32.0-36.0); MEAN CORPUSCULAR VOLUME 85.8 fl (83.0-99.0); MEAN PLATELET VOLUME 11.1 fl (9.4-12.3); MONOCYTES ABSOLUTE AUTO 0.4 K/mm3 (0.0-0.8); MONOCYTES PERCENT AUTO 6.9 % (0.0-8.0); NEUTROPHILS ABSOLUTE AUTO 3.7 K/mm3 (1.8-7.7); NEUTROPHILS PERCENT AUTO 59.4 % (41.0-71.0); PLATELET COUNT,PLT 282 K/mm3 (150-400); RED BLOOD CELL COUNT 4.59 M/mm3 (4.10-5.30); WHITE BLOOD CELL COUNT,WBC 6.27 K/mm3 (3.9-11.3)
[2024-10-04 11:57] LABS: ANION GAP 11.6 (5-15); BUN/CREATININE RATIO 15.7 (14-18); CREATININE 0.7 mg/dL (0.55-1.02); POTASSIUM,K 3.6 mEq/L (3.5-5.1)
[2024-10-04 11:58] LABS: ALBUMIN 3.7 g/dl (3.4-5.0); BILIRUBIN TOTAL 0.2 mg/dL (0.2-1.0); CALCIUM 8.4 mg/dL (8.5-10.1); EST CRCL DRUG DOSING (CG) 98.07 mL/min; MAGNESIUM 1.8 mg/dL (1.8-2.4); PROTEIN TOTAL,TP 7.3 g/dl (6.4-8.2)
[2024-10-04] MEDS: Ketorolac 30 MG/ML SDV IVPUSH ONE (13:15)
== END 2024-10-04 13:20 | disposition home or self-care (01) ==
LOC: JD.ED 10:05
DX: M26.602 Left temporomandibular joint disorder, unspecified (principal); I10 Essential (primary) hypertension; E78.00 Pure hypercholesterolemia, unspecified; E11.9 Type 2 diabetes mellitus without complications; E66.9 Obesity, unspecified; Z86.16 Personal history of COVID-19; Z79.899 Other long term (current) drug therapy; Z88.8 Allergy status to other drugs, medicaments and biological substances; Z68.25 Body mass index [BMI] 25.0-25.9, adult
CPT/HCPCS: 36415; 70487; 80053; 83735; 84484; 85025; 93005; 96374; 99284; J1885; Q9967

== ENCOUNTER 2025-06-18 16:17 | Emergency (ER) | payer MEDICAID ==
[2025-06-18] MEDS: Ketorolac 30 MG/ML SDV IVPUSH ONE (17:23)
[2025-06-18] MEDS: diphenhydrAMINE 50 MG/ML SDV IVPUSH ONE (17:24)
[2025-06-18 17:29] LABS: BASOPHILS ABSOLUTE AUTO 0.0 K/mm3 (0.0-0.2); BASOPHILS PERCENT AUTO 0.5 % (0.0-1.0); EOSINOPHILS ABSOLUTE AUTO 0.1 K/mm3 (0.0-0.4); EOSINOPHILS PERCENT AUTO 1.0 % (0.0-6.0); IMMATURE GRAN ABSOLUTE AUTO 0.02 K/mm3 (0.00-0.05); IMMATURE GRAN PERCENT AUTO 0.2 % (0.0-0.4); LYMPHOCYTES ABSOLUTE AUTO 1.5 K/mm3 (1.0-4.8); LYMPHOCYTES PERCENT AUTO 18.6 % (24.0-44.0); MEAN PLATELET VOLUME 11.9 fl (9.4-12.3); MONOCYTES ABSOLUTE AUTO 0.4 K/mm3 (0.0-0.8); MONOCYTES PERCENT AUTO 5.0 % (0.0-8.0); NEUTROPHILS ABSOLUTE AUTO 6.2 K/mm3 (1.8-7.7); NEUTROPHILS PERCENT AUTO 74.7 % (41.0-71.0); NRBC ABSOLUTE 0.00 (0.00-0.02); NRBC PERCENT 0.0 % (0.0-0.2); PLATELET COUNT,PLT 232 K/mm3 (150-400); RED BLOOD CELL COUNT 4.53 M/mm3 (4.10-5.30); WHITE BLOOD CELL COUNT,WBC 8.27 K/mm3 (3.9-11.3)
[2025-06-18] MEDS: Sodium Chloride 0.9% 10 ML Syringe FLUSH PRN (17:29)
[2025-06-18 17:47] LABS: INR 1.04
[2025-06-18 17:48] LABS: PTT,PARTIAL THROMBOPLSTIN TIME 23.8 SECONDS (21.7-31.4)
[2025-06-18 17:53] LABS: A/G RATIO 1.2 (1-2); ALANINE AMINOTRANSFERASE,ALT 40.0 U/L (14-59); BILIRUBIN TOTAL 0.5 mg/dL (0.2-1.0); BLOOD UREA NITROGEN,BUN 11.0 mg/dL (7-18); CARBON DIOXIDE,CO2 24.0 mEq/L (21-32); CHLORIDE,CL 107.0 mEq/L (98-107); CREATININE 0.5 mg/dL (0.55-1.02); EST CRCL DRUG DOSING (CG) 137.3 mL/min; ESTIMATED GFR 115.0 mL/min (>60); GLUCOSE RANDOM 99.0 mg/dL (70-99); PROTEIN TOTAL,TP 7.0 g/dl (6.4-8.2); SODIUM,NA 139.0 mEq/L (136-145); TROPONIN I HIGH SENSITIVITY 7.0 pg/mL (<=51)
[2025-06-18 17:59] LABS: ASPARTATE AMNIOTRANSFERASE,AST 31.0 U/L (15-37); POTASSIUM,K 4.7 mEq/L (3.5-5.1)
[2025-06-18 18:29] LABS: IRON,FE 97 ug/dL (50-170); PERCENT FE SATURATION 41 % (20-55)
== END 2025-06-18 20:00 | disposition home or self-care (01) ==
LOC: JD.ED 16:17
DX: G44.319 Acute post-traumatic headache, not intractable (principal); R42 Dizziness and giddiness; I10 Essential (primary) hypertension; E66.9 Obesity, unspecified; E11.40 Type 2 diabetes mellitus with diabetic neuropathy, unspecified; F17.200 Nicotine dependence, unspecified, uncomplicated; Z79.899 Other long term (current) drug therapy; Z88.8 Allergy status to other drugs, medicaments and biological substances; Z86.16 Personal history of COVID-19; Z90.49 Acquired absence of other specified parts of digestive tract
CPT/HCPCS: 36415; 70450; 80053; 83540; 84466; 84484; 85025; 85610; 85730; 93005; 96361; 96374; 96375; 99284; J1200; J1885; J2765; J7030; 93010; J1171

== ENCOUNTER 2025-06-27 13:22 | Emergency (ER) | payer MEDICAID | END 2025-06-27 15:05 | disposition home or self-care (01) | LOC: JD.ED 13:22 | DX: M25.552 Pain in left hip (principal); M54.50 Low back pain, unspecified; I10 Essential (primary) hypertension; E78.00 Pure hypercholesterolemia, unspecified; E11.42 Type 2 diabetes mellitus with diabetic polyneuropathy; E66.9 Obesity, unspecified; Z79.899 Other long term (current) drug therapy; Z88.8 Allergy status to other drugs, medicaments and biological substances; Z68.30 Body mass index [BMI] 30.0-30.9, adult | CPT/HCPCS: 72100; 72100-26; 73502-26-LT; 73502-LT; 99283 ==